=== PATIENT | male | born 1945 | race Caucasian/White ===

== ENCOUNTER 2017-08-31 11:27 | Outpatient (CLI) | payer OTHER, MEDICARE ==
[~2017-08-31 11:27] MED LIST: ONDA8TAB9 PO
[2017-08-31 12:39] LABS: BASOPHILS # (AUTO) 0.1 X10'3 (0-0.2); EOSINOPHILS # (AUTO) 0.2 X10'3 (0-0.9); EOSINOPHILS % (AUTO) 2.2 % (0-6); HEMATOCRIT 42.1 % (42.0-52.0); HEMOGLOBIN 14.7 g/dl (14.0-17.9); LYMPHOCYTES # (AUTO) 2.3 X10'3 (1.1-4.8); LYMPHOCYTES % (AUTO) 21.9 % (21-51); MEAN CORPUSCULAR HEMOGLOBIN 31.1 PG (27.0-31.0); MEAN CORPUSCULAR HGB CONC 34.8 % (33.0-36.5); MEAN CORPUSCULAR VOLUME 89.2 FL (78-98); MEAN PLATELET VOLUME 7.2 FL (7.4-10.4); MONOCYTES # (AUTO) 0.8 X10'3 (0-0.9); MONOCYTES % (AUTO) 7.3 % (2-12); NEUTROPHILS # (AUTO) 7.1 X10'3 (1.8-7.7); NEUTROPHILS % (AUTO) 67.6 % (42-75); PLATELET COUNT 249 X10'3 (140-440); RED BLOOD COUNT 4.72 X10'6 (4.70-6.10); RED CELL DISTRIBUTION WIDTH 14.6 % (11.5-14.5); WHITE BLOOD COUNT 10.6 X10'3 (4.5-11.0)
[2017-08-31 12:46] LABS: CLARITY,URINE CLEAR (Clear); COLOR,URINE STRAW (Yellow); GLUCOSE, URINE NEGATIVE (Neg); KETONES,URINE NEGATIVE (Neg); LEUKOCYTE ESTERASE ,URINE NEGATIVE (Neg); NITRITES, URINE NEGATIVE (Neg); OCCULT BLOOD,URINE TRACE-LYSED (Neg); PH,URINE 5.5 (4.8-8.0); PROTEIN,URINE NEGATIVE (Neg); UROBILINOGEN,URINE 0.2 E.U/dL (0.2-1.0)
[2017-08-31 12:57] LABS: UA COLLECTION TYPE VOIDED
[2017-08-31 12:58] LABS: BACTERIA,URINE FEW /HPF (Neg); RBC,URINE 0-2 /HPF (0-2); SQUAMOUS EPITHELIAL CELL,UR FEW /LPF (FEW); WBC,URINE 0-4 /HPF (0-4)
[2017-08-31 13:03] LABS: ALANINE AMINOTRANSFERASE 17 U/L (12-78); ALBUMIN 3.7 G/DL (3.4-5.0); ALBUMIN/GLOBULIN RATIO 1.4 (1.1-1.5); ALKALINE PHOSPHATASE 67 IU/L (46-116); ANION GAP 6 (8-16); ASPARTATE AMINO TRANSFERASE 32 U/L (10-37); BILIRUBIN,TOTAL 0.5 MG/DL (0.1-1.0); BLOOD UREA NITROGEN 9 MG/DL (7-18); CALCIUM 8.5 MG/DL (8.5-10.1); CHLORIDE 103 MMOL/L (99-107); CHOL/HDL RATIO 3.7 (0.00-4.99); CHOLESTEROL 181 MG/DL (0-200); CREATININE 1.12 MG/DL (0.60-1.10); GLUCOSE 72 MG/DL (70-104); HDL CHOLESTEROL 49 MG/DL (35-60); LDL CHOLESTEROL 119 MG/DL (50-100); POTASSIUM 3.9 MMOL/L (3.5-5.1); SODIUM 139 MMOL/L (135-145); TOTAL CARBON DIOXIDE 29.6 MMOL/L (24-32); TOTAL PROTEIN 6.4 G/DL (6.4-8.2); TRIGLYCERIDES 63 MG/DL (20-135); eGFR 65 ML/MIN
[2017-09-02 15:25] LABS: TESTOSTERONE, FREE, DIRECT 14.7 pg/mL (6.6-18.1)
== END 2017-08-31 23:59 | disposition home or self-care (01) ==
LOC: LAB 11:27
PROVIDERS: ATTEND Family Medicine
DX: M54.41 Lumbago with sciatica, right side (principal); F17.200 Nicotine dependence, unspecified, uncomplicated; Z76.89 Persons encountering health services in other specified circumstances
CPT/HCPCS: 36415; 80053; 80061; 81001; 84402; 84403; 84439; 84443; 85025

== ENCOUNTER 2017-09-04 08:57 | Outpatient (CLI) | payer OTHER, MEDICARE | END 2017-09-04 23:59 | disposition home or self-care (01) | LOC: RAD 08:57 | PROVIDERS: ATTEND Surgery | DX: M47.816 Spondylosis without myelopathy or radiculopathy, lumbar region (principal); M48.061 Spinal stenosis, lumbar region without neurogenic claudication | CPT/HCPCS: 72148 ==

== ENCOUNTER 2019-01-09 09:53 | Outpatient (CLI) | payer OTHER, MEDICARE ==
[2019-01-09 10:39] LABS: BASOPHILS # (AUTO) 0.1 X10'3 (0-0.2); BASOPHILS % (AUTO) 1.4 % (0-1); EOSINOPHILS # (AUTO) 0.1 X10'3 (0-0.9); EOSINOPHILS % (AUTO) 1.5 % (0-6); HEMATOCRIT 41.5 % (42.0-52.0); HEMOGLOBIN 14.3 g/dl (14.0-17.9); LYMPHOCYTES # (AUTO) 1.3 X10'3 (1.1-4.8); LYMPHOCYTES % (AUTO) 15.3 % (21-51); MEAN CORPUSCULAR HGB CONC 34.4 g/dL (33.0-36.5); MEAN CORPUSCULAR VOLUME 93.1 FL (78-98); MEAN PLATELET VOLUME 6.3 FL (7.4-10.4); MONOCYTES # (AUTO) 0.6 X10'3 (0-0.9); MONOCYTES % (AUTO) 6.3 % (2-12); NEUTROPHILS # (AUTO) 6.6 X10'3 (1.8-7.7); NEUTROPHILS % (AUTO) 75.5 % (42-75); PLATELET COUNT 197 X10'3 (140-440); RED BLOOD COUNT 4.45 X10'6 (4.70-6.10); RED CELL DISTRIBUTION WIDTH 13.8 % (11.5-14.5); WHITE BLOOD COUNT 8.7 X10'3 (4.5-11.0)
[2019-01-09 10:41] LABS: CLARITY,URINE CLEAR (Clear); COLOR,URINE YELLOW (Yellow); GLUCOSE, URINE NEGATIVE (Neg); KETONES,URINE NEGATIVE (Neg); LEUKOCYTE ESTERASE ,URINE NEGATIVE (Neg); NITRITES, URINE NEGATIVE (Neg); OCCULT BLOOD,URINE SMALL (Neg); PROTEIN,URINE TRACE mg/dl (Neg); UROBILINOGEN,URINE 0.2 E.U/dL (0.2-1.0)
[2019-01-09 10:58] LABS: UA COLLECTION TYPE CLN CATCH MIDSTREAM
[2019-01-09 10:59] LABS: BACTERIA,URINE 1+ /HPF (Neg); MUCUS STRANDS MODERATE /LPF (Neg); SQUAMOUS EPITHELIAL CELL,UR FEW /LPF (FEW); WBC,URINE 0-4 /HPF (0-4)
[2019-01-09 11:02] LABS: ALANINE AMINOTRANSFERASE 32 U/L (12-78); ALBUMIN 3.6 G/DL (3.4-5.0); ALBUMIN/GLOBULIN RATIO 1.1 (1.1-1.5); ALKALINE PHOSPHATASE 76 IU/L (46-116); ANION GAP 7 (8-16); ASPARTATE AMINO TRANSFERASE 58 U/L (10-37); BILIRUBIN,TOTAL 0.4 MG/DL (0.1-1.0); BLOOD UREA NITROGEN 8 MG/DL (7-18); BUN/CREATININE RATIO 7.8 (5.4-32.0); CALCIUM 8.6 MG/DL (8.5-10.1); CHLORIDE 104 MMOL/L (99-107); CHOL/HDL RATIO 3.4 (0.00-4.99); CHOLESTEROL 202 MG/DL (0-200); CREATININE 1.03 MG/DL (0.60-1.10); GLUCOSE 121 MG/DL (70-104); HDL CHOLESTEROL 59 MG/DL (35-60); LDL CHOLESTEROL 137 MG/DL (50-100); POTASSIUM 3.8 MMOL/L (3.5-5.1); SODIUM 143 MMOL/L (135-145); TOTAL CARBON DIOXIDE 32.4 MMOL/L (24-32); TRIGLYCERIDES 96 MG/DL (20-135); eGFR 71 ML/MIN
== END 2019-01-09 23:59 | disposition home or self-care (01) ==
LOC: LAB 09:53
PROVIDERS: ATTEND Family Medicine
DX: M54.41 Lumbago with sciatica, right side (principal); Z76.89 Persons encountering health services in other specified circumstances; Z95.828 Presence of other vascular implants and grafts; F17.200 Nicotine dependence, unspecified, uncomplicated
CPT/HCPCS: 36415; 80053; 80061; 81001; 84439; 84443; 85025

== ENCOUNTER 2019-04-12 15:56 | Inpatient (IN) | payer OTHER, MEDICARE ==
[~2019-04-12] VITALS: Ht 177.8 cm; Wt 61.8 kg
[2019-04-12] MEDS ORDERED: nitroGLYCERIN 0.4mg SUBLingual tab SL PRN ×2 (16:05→16:50)
[2019-04-12] MEDS ORDERED: aspirin 81mg tab.chew PO ONE (16:05)
[2019-04-12 16:11] LABS: BASOPHILS # (AUTO) 0.2 X10'3 (0-0.2); BASOPHILS % (AUTO) 1.2 % (0-1); EOSINOPHILS % (AUTO) 0.3 % (0-6); HEMATOCRIT 40.6 % (42.0-52.0); HEMOGLOBIN 13.7 g/dl (14.0-17.9); LYMPHOCYTES # (AUTO) 1.5 X10'3 (1.1-4.8); LYMPHOCYTES % (AUTO) 9.6 % (21-51); MEAN CORPUSCULAR HEMOGLOBIN 30.9 PG (27.0-31.0); MEAN CORPUSCULAR HGB CONC 33.7 g/dL (33.0-36.5); MEAN CORPUSCULAR VOLUME 91.8 FL (78-98); MEAN PLATELET VOLUME 6.4 FL (7.4-10.4); MONOCYTES # (AUTO) 2.2 X10'3 (0-0.9); MONOCYTES % (AUTO) 14.3 % (2-12); NEUTROPHILS # (AUTO) 11.5 X10'3 (1.8-7.7); NEUTROPHILS % (AUTO) 74.6 % (42-75); PLATELET COUNT 379 X10'3 (140-440); RED BLOOD COUNT 4.42 X10'6 (4.70-6.10); RED CELL DISTRIBUTION WIDTH 12.9 % (11.5-14.5); WHITE BLOOD COUNT 15.4 X10'3 (4.5-11.0)
[2019-04-12 16:26] LABS: ALANINE AMINOTRANSFERASE 18 U/L (12-78); ALBUMIN 3.4 G/DL (3.4-5.0); ALBUMIN/GLOBULIN RATIO 0.9 (1.1-1.5); ALKALINE PHOSPHATASE 88 IU/L (46-116); ANION GAP 10 (8-16); ASPARTATE AMINO TRANSFERASE 24 U/L (10-37); BILIRUBIN,TOTAL 0.6 MG/DL (0.1-1.0); BLOOD UREA NITROGEN 12 MG/DL (7-18); BUN/CREATININE RATIO 11.4 (5.4-32.0); CALCIUM 8.9 MG/DL (8.5-10.1); CHLORIDE 96 MMOL/L (99-107); CREATININE 1.05 MG/DL (0.60-1.10); GLUCOSE 106 MG/DL (70-104); POTASSIUM 3.3 MMOL/L (3.5-5.1); SODIUM 134 MMOL/L (135-145); TOTAL PROTEIN 7.3 G/DL (6.4-8.2); eGFR 70 ML/MIN
[2019-04-12 16:31] LABS: MAGNESIUM 1.7 MG/DL (1.5-2.4); PLATELET ESTIMATE NORMAL; TOTAL CELLS COUNTED 100
[2019-04-12] MEDS ORDERED: GABA-530 PO (16:31)
[2019-04-12] MEDS ORDERED: BACL20TA2 PO (16:31)
[2019-04-12] MEDS ORDERED: TIMO5DRO4 EACHEYE (16:31)
[2019-04-12] MEDS ORDERED: PANT20TA3 PO (16:31)
[2019-04-12] MEDS ORDERED: CYCL-1 PO (16:31)
[2019-04-12] MEDS ORDERED: CLOP75TA35 PO (16:31)
[2019-04-12] MEDS ORDERED: magnesium Cl slow-release 64mg tablet PO PRN (16:50)
[2019-04-12] MEDS ORDERED: magnesium 2GM in 50ml NS 50 ML IV PRN (16:50)
[2019-04-12] MEDS ORDERED: acetaminophen 325mg tablet PO PRN ×2 (16:50)
[2019-04-12] MEDS ORDERED: ondansetron/PF 4mg/2ml inj IV PRN (16:50)
[2019-04-12] MEDS ORDERED: mag hydrox/Alum hydrox/simeth 30ml oral suspension PO PRN (16:50)
[2019-04-12] MEDS ORDERED: magnesium hydroxide 30ml (MOM) UD suspension PO PRN (16:50)
[2019-04-12] MEDS ORDERED: HYDROcodone/acetaminophen 5mg/325mg tablet PO PRN (16:50)
[2019-04-12] MEDS ORDERED: potassium CL 10mEq/100ml bag 100 ML IV PRN ×2 (16:50)
[2019-04-12] MEDS ORDERED: potassium Cl 20 mEq SR tablet PO PRN ×2 (16:50)
[2019-04-12] MEDS ORDERED: morphine 2 MG/ML inj. syringe IV PRN ×2 (16:50)
[2019-04-12] MEDS ORDERED: magnesium 4gm in 100ml NS 100 ML IV PRN (16:50)
[2019-04-12] MEDS ORDERED: furosemide 20 MG/2 ML vial IV ONE (17:00)
[2019-04-12 17:08] LABS: D-DIMER 4.25 MG/L FEU (0-0.50)
[2019-04-12] MEDS ORDERED: iohexol 350MG/ML 100ml bottle IV ONE (17:36)
[2019-04-12 18:00] VITALS: BP 118/69
[2019-04-12] MEDS: K and/or MAG REPLACEMENT MC SCH (20:00)
[2019-04-12] MEDS ORDERED: nitroGLYCERIN 0.2mg/hour patch TD ONE (21:25)
[2019-04-12] MEDS ORDERED: LORazepam 1 MG tablet PO PRN (21:25)
[2019-04-12] MEDS ORDERED: LORazepam 2 mg/ml vial IV PRN (21:25)
[2019-04-12] MEDS ORDERED: furosemide 40mg/4ml inj IV ONE (21:25)
[2019-04-12 22:00] VITALS: BP 115/64
[2019-04-12] MEDS ORDERED: thiamine 100mg tablet PO ONE (22:15)
[2019-04-12] MEDS ORDERED: folic acid 1mg tablet PO ONE (22:15)
[2019-04-12] MEDS: folic acid 1mg tablet PO SCH (22:30)
[2019-04-12] MEDS: thiamine 100mg tablet PO SCH (22:31)
[2019-04-13] VITALS (16 sets, daily range): BP systolic 109–137; BP diastolic 58–74
[2019-04-13 04:52] LABS: BASOPHILS # (AUTO) 0.1 X10'3 (0-0.2); BASOPHILS % (AUTO) 0.6 % (0-1); EOSINOPHILS # (AUTO) 0.1 X10'3 (0-0.9); EOSINOPHILS % (AUTO) 0.5 % (0-6); HEMATOCRIT 38.4 % (42.0-52.0); LYMPHOCYTES # (AUTO) 1.3 X10'3 (1.1-4.8); LYMPHOCYTES % (AUTO) 10.2 % (21-51); MEAN CORPUSCULAR HEMOGLOBIN 31.1 PG (27.0-31.0); MEAN CORPUSCULAR HGB CONC 33.9 g/dL (33.0-36.5); MEAN CORPUSCULAR VOLUME 91.7 FL (78-98); MEAN PLATELET VOLUME 6.8 FL (7.4-10.4); MONOCYTES # (AUTO) 1.9 X10'3 (0-0.9); NEUTROPHILS # (AUTO) 9.2 X10'3 (1.8-7.7); NEUTROPHILS % (AUTO) 73.7 % (42-75); PLATELET COUNT 372 X10'3 (140-440); RED BLOOD COUNT 4.19 X10'6 (4.70-6.10); WHITE BLOOD COUNT 12.5 X10'3 (4.5-11.0)
[2019-04-13 05:04] LABS: ALBUMIN 2.9 G/DL (3.4-5.0); ANION GAP 8 (8-16); BLOOD UREA NITROGEN 14 MG/DL (7-18); BUN/CREATININE RATIO 13.9 (5.4-32.0); CALCIUM 8.8 MG/DL (8.5-10.1); CHLORIDE 99 MMOL/L (99-107); CREATININE 1.01 MG/DL (0.60-1.10); GLUCOSE 94 MG/DL (70-104); MAGNESIUM 1.7 MG/DL (1.5-2.4); POTASSIUM 3.9 MMOL/L (3.5-5.1); SODIUM 136 MMOL/L (135-145); TOTAL CARBON DIOXIDE 28.7 MMOL/L (24-32); eGFR 73 ML/MIN
--- NOTE | 2019-04-13 06:26 | NUR ---
Problems reprioritized. Patient report given to Michael, questions answered & plan of care reviewed with .
[2019-04-13 06:49] LABS: CLARITY,URINE CLEAR (Clear); COLOR,URINE YELLOW (Yellow); GLUCOSE, URINE NEGATIVE (Neg); KETONES,URINE NEGATIVE (Neg); LEUKOCYTE ESTERASE ,URINE NEGATIVE (Neg); NITRITES, URINE NEGATIVE (Neg); OCCULT BLOOD,URINE MODERATE (Neg); PROTEIN,URINE NEGATIVE (Neg); UROBILINOGEN,URINE 0.2 E.U/dL (0.2-1.0)
[2019-04-13 06:53] LABS: UA COLLECTION TYPE NON-SPECIFIED
[2019-04-13 06:55] LABS: BACTERIA,URINE NONE SEEN /HPF (Neg); MUCUS STRANDS NONE SEEN /LPF (Neg); SQUAMOUS EPITHELIAL CELL,UR NONE SEEN /LPF (FEW); WBC,URINE 0-4 /HPF (0-4)
[2019-04-13] MEDS ORDERED: enoxaparin 40mg/0.4ml syringe SQ SCH (08:00)
[2019-04-13] MEDS: K and/or MAG REPLACEMENT MC SCH ×2 (08:00→20:00)
[2019-04-13] MEDS ORDERED: aminophylline 250mg/10ml inj. IV PRN (09:20)
[2019-04-13] MEDS ORDERED: nitroGLYCERIN 0.4mg SUBLingual tab SL PRN (09:20)
[2019-04-13] MEDS ORDERED: regadenoson 0.4mg/5ml syringe IV PRN (09:20)
[2019-04-13] MEDS ORDERED: metoprolol tartrate 1mg/ml inj IV PRN (09:20)
[2019-04-13] MEDS: furosemide 20 MG/2 ML vial IV SCH ×2 (09:42→20:49)
[2019-04-13] MEDS: thiamine 100mg tablet PO SCH (09:45)
[2019-04-13] MEDS: folic acid 1mg tablet PO SCH (09:45)
[2019-04-13] MEDS: indomethacin 25mg capsule PO SCH ×3 (11:15→17:38)
--- NOTE | 2019-04-13 18:04 | NUR ---
Problems reprioritized. Patient report given, questions answered & plan of care reviewed with Edita RIBEIRO.
--- NOTE | 2019-04-13 18:30 | NUR ---
Patient in room MED 312. I have received report from QUINTIN Coronado and had the opportunity to ask questions and assume patient care.
[2019-04-13] MEDS: metoprolol tartrate 12.5mg (1/2 tablet) PO SCH (20:48)
[2019-04-13] MEDS ORDERED: cyclobenzaprine 10mg tablet PO SCH (21:00)
[2019-04-13] MEDS ORDERED: baclofen 10mg tablet PO SCH (21:00)
[2019-04-13] MEDS ORDERED: timolol 0.5% ophthalmic solution 5ml bottle EACHEYE SCH (21:00)
[2019-04-13] MEDS ORDERED: pantoprazole 40mg Tablet.DR PO SCH (21:00)
[2019-04-13] MEDS ORDERED: gabapentin 100mg capsule PO SCH (21:00)
[2019-04-13] MEDS ORDERED: clopidogrel 75mg tablet PO SCH (21:00)
[2019-04-14 03:00] VITALS: BP 113/73
[2019-04-14 06:00] VITALS: BP 127/67
--- NOTE | 2019-04-14 06:11 | NUR ---
Problems reprioritized. Patient report given, questions answered & plan of care reviewed with QUINTIN Matthews.
[2019-04-14 06:41] LABS: BASOPHILS # (AUTO) 0.1 X10'3 (0-0.2); BASOPHILS % (AUTO) 0.6 % (0-1); EOSINOPHILS # (AUTO) 0.3 X10'3 (0-0.9); EOSINOPHILS % (AUTO) 2.4 % (0-6); HEMATOCRIT 38.8 % (42.0-52.0); HEMOGLOBIN 13.1 g/dl (14.0-17.9); LYMPHOCYTES # (AUTO) 1.1 X10'3 (1.1-4.8); LYMPHOCYTES % (AUTO) 8.2 % (21-51); MEAN CORPUSCULAR HEMOGLOBIN 30.9 PG (27.0-31.0); MEAN CORPUSCULAR HGB CONC 33.6 g/dL (33.0-36.5); MEAN CORPUSCULAR VOLUME 91.8 FL (78-98); MEAN PLATELET VOLUME 6.8 FL (7.4-10.4); MONOCYTES # (AUTO) 1.7 X10'3 (0-0.9); MONOCYTES % (AUTO) 13.1 % (2-12); NEUTROPHILS # (AUTO) 9.7 X10'3 (1.8-7.7); NEUTROPHILS % (AUTO) 75.7 % (42-75); PLATELET COUNT 414 X10'3 (140-440); RED BLOOD COUNT 4.23 X10'6 (4.70-6.10); RED CELL DISTRIBUTION WIDTH 12.9 % (11.5-14.5); WHITE BLOOD COUNT 12.8 X10'3 (4.5-11.0)
[2019-04-14 06:47] LABS: ALBUMIN 2.7 G/DL (3.4-5.0); ANION GAP 10 (8-16); BLOOD UREA NITROGEN 26 MG/DL (7-18); BUN/CREATININE RATIO 21.1 (5.4-32.0); CALCIUM 8.8 MG/DL (8.5-10.1); CHLORIDE 100 MMOL/L (99-107); CHOL/HDL RATIO 4.2 (0.00-4.99); CHOLESTEROL 135 MG/DL (0-200); CREATININE 1.23 MG/DL (0.60-1.10); GLUCOSE 90 MG/DL (70-104); HDL CHOLESTEROL 32 MG/DL (35-60); LDL CHOLESTEROL 90 MG/DL (50-100); MAGNESIUM 1.7 MG/DL (1.5-2.4); POTASSIUM 3.9 MMOL/L (3.5-5.1); SODIUM 140 MMOL/L (135-145); TOTAL CARBON DIOXIDE 30.4 MMOL/L (24-32); TRIGLYCERIDES 80 MG/DL (20-135); eGFR 58 ML/MIN
[2019-04-14] MEDS: indomethacin 25mg capsule PO SCH (07:28)
[2019-04-14] MEDS: folic acid 1mg tablet PO SCH (07:28)
[2019-04-14] MEDS: metoprolol tartrate 12.5mg (1/2 tablet) PO SCH (07:28)
[2019-04-14] MEDS: thiamine 100mg tablet PO SCH (07:28)
[2019-04-14] MEDS: furosemide 20 MG/2 ML vial IV SCH (07:37)
[2019-04-14] MEDS: K and/or MAG REPLACEMENT MC SCH (08:00)
[2019-04-14] MEDS ORDERED: aspirin 81mg tablet.DR PO SCH (08:00)
[2019-04-14] MEDS ORDERED: colchicine 0.6mg tablet PO SCH (08:00)
[2019-04-14 10:00] VITALS: BP 101/59
[2019-04-14] MEDS ORDERED: COLC0.6T69 PO (12:01)
[2019-04-14] MEDS ORDERED: INDO-12 PO (12:01)
--- NOTE | 2019-04-14 13:53 | NUR ---
Pt. given discharge instructions, all questions answered. PIV removed without complication. Meds called in.
== END 2019-04-14 12:36 | disposition home or self-care (01) | DRG 316 ==
LOC: ER 15:57 → ED HOLD 17:13 → MED 3N 18:45
PROVIDERS: ADMIT Hospitalist; ATTEND Hospitalist
PROC: B32T1ZZ Computerized Tomography (CT Scan) of Left Pulmonary Artery using Low Osmolar Contrast (ICD-10-PCS; principal; 2019-04-12)
PROC: B3201ZZ Computerized Tomography (CT Scan) of Thoracic Aorta using Low Osmolar Contrast (ICD-10-PCS; 2019-04-12)
PROC: B32S1ZZ Computerized Tomography (CT Scan) of Right Pulmonary Artery using Low Osmolar Contrast (ICD-10-PCS; 2019-04-12)
PROC: 4A02XM4 Measurement of Cardiac Total Activity, External Approach (ICD-10-PCS; 2019-04-13)
PROC: 3E033HZ Introduction of Radioactive Substance into Peripheral Vein, Percutaneous Approach (ICD-10-PCS; 2019-04-13)
DX: I30.9 Acute pericarditis, unspecified (principal); E78.5 Hyperlipidemia, unspecified; F17.200 Nicotine dependence, unspecified, uncomplicated; J44.9 Chronic obstructive pulmonary disease, unspecified; I10 Essential (primary) hypertension; I25.10 Atherosclerotic heart disease of native coronary artery without angina pectoris; I34.0 Nonrheumatic mitral (valve) insufficiency; K21.9 Gastro-esophageal reflux disease without esophagitis; R70.0 Elevated erythrocyte sedimentation rate; R79.82 Elevated C-reactive protein (CRP); I48.0 Paroxysmal atrial fibrillation; N52.9 Male erectile dysfunction, unspecified; Z79.02 Long term (current) use of antithrombotics/antiplatelets; Z95.5 Presence of coronary angioplasty implant and graft; Z79.899 Other long term (current) drug therapy; Z71.6 Tobacco abuse counseling
CPT/HCPCS: 36415; 71045; 71275; 78452; 80048; 80053; 80061; 81001; 82948; 83605; 83735; 83880; 84484; 85025; 85379; 85651; 86140; 87040; 93005; 93017; 93306; 99285; A9500; G0378; J0280; J1940; J2785; Q9967

== ENCOUNTER 2019-04-17 20:13 | Inpatient (IN) | payer OTHER, MEDICARE ==
[~2019-04-17] VITALS: Ht 177.8 cm; Wt 60.3 kg
[~2019-04-17 20:13] MED LIST changes: +BACL20TA2 PO; +CLOP75TA35 PO; +COLC0.6T69 PO; +CYCL-1 PO; +GABA-530 PO; +INDO-12 PO; -ONDA8TAB9 PO; +PANT20TA3 PO; +TIMO5DRO4 EACHEYE
[2019-04-17] MEDS ORDERED: aspirin 81mg tab.chew PO ONE ×2 (20:30)
[2019-04-17] MEDS ORDERED: LIDOcaine 1% 30ml preserv. free vial ONE (20:46)
[2019-04-17] MEDS ORDERED: heparin 1,000unit/ml 10ml vial 10 ML ONE (20:46)
[2019-04-17] MEDS ORDERED: midazolam 2 mg/2 ml injection ONE (20:46)
[2019-04-17] MEDS ORDERED: fentaNYL/PF 50MCG/1 ML 2ML syringe ONE (20:46)
[2019-04-17] MEDS ORDERED: iohexol 350 MG/1 ML 200ml bottle ONE (20:47)
[2019-04-17] MEDS ORDERED: iohexol 350 MG/ML 50ML vial IV ONE (20:47)
[2019-04-17 21:05] LABS: BASOPHILS # (AUTO) 0.1 X10'3 (0-0.2); BASOPHILS % (AUTO) 0.8 % (0-1); EOSINOPHILS # (AUTO) 0.2 X10'3 (0-0.9); EOSINOPHILS % (AUTO) 1.1 % (0-6); HEMATOCRIT 36.1 % (42.0-52.0); HEMOGLOBIN 12.4 g/dl (14.0-17.9); LYMPHOCYTES # (AUTO) 1.5 X10'3 (1.1-4.8); LYMPHOCYTES % (AUTO) 9.6 % (21-51); MEAN CORPUSCULAR HEMOGLOBIN 31.4 PG (27.0-31.0); MEAN CORPUSCULAR HGB CONC 34.4 g/dL (33.0-36.5); MEAN CORPUSCULAR VOLUME 91.3 FL (78-98); MEAN PLATELET VOLUME 6.8 FL (7.4-10.4); MONOCYTES # (AUTO) 1.4 X10'3 (0-0.9); MONOCYTES % (AUTO) 8.8 % (2-12); NEUTROPHILS # (AUTO) 12.2 X10'3 (1.8-7.7); NEUTROPHILS % (AUTO) 79.7 % (42-75); PLATELET COUNT 597 X10'3 (140-440); RED BLOOD COUNT 3.95 X10'6 (4.70-6.10); RED CELL DISTRIBUTION WIDTH 12.7 % (11.5-14.5); WHITE BLOOD COUNT 15.4 X10'3 (4.5-11.0)
[2019-04-17] MEDS ORDERED: heparin 25,000 UNIT/250ml bag 250 ML IV SCH (21:05)
[2019-04-17] MEDS ORDERED: heparin 10,000 units/1 ML INJ IV ONE (21:05)
[2019-04-17] MEDS ORDERED: nitroGLYCERIN 0.4mg SUBLingual tab SL PRN (21:05)
[2019-04-17] MEDS ORDERED: heparin 10,000 units/1 ML INJ IV PRN (21:05)
[2019-04-17 21:11] LABS: PARTIAL THROMBOPLASTIN TIME 31 SECONDS (22-32)
[2019-04-17 21:17] LABS: ALANINE AMINOTRANSFERASE 20 U/L (12-78); ALBUMIN 3.1 G/DL (3.4-5.0); ALBUMIN/GLOBULIN RATIO 0.7 (1.1-1.5); ALKALINE PHOSPHATASE 117 IU/L (46-116); ANION GAP 9 (8-16); ASPARTATE AMINO TRANSFERASE 30 U/L (10-37); BILIRUBIN,TOTAL 0.3 MG/DL (0.1-1.0); BLOOD UREA NITROGEN 20 MG/DL (7-18); BUN/CREATININE RATIO 16.3 (5.4-32.0); CHLORIDE 96 MMOL/L (99-107); CREATININE 1.23 MG/DL (0.60-1.10); GLUCOSE 101 MG/DL (70-104); POTASSIUM 3.1 MMOL/L (3.5-5.1); SODIUM 133 MMOL/L (135-145); TOTAL CARBON DIOXIDE 28.1 MMOL/L (24-32); TOTAL PROTEIN 7.5 G/DL (6.4-8.2); eGFR 58 ML/MIN
[2019-04-17 21:24] LABS: MAGNESIUM 1.7 MG/DL (1.5-2.4)
[2019-04-17 22:10] LABS: TOTAL CELLS COUNTED 100
[2019-04-17 22:11] LABS: PLATELET ESTIMATE INCREASED
[2019-04-17 23:00] VITALS: BP 139/69
[2019-04-17] MEDS ORDERED: morphine 2 MG/ML inj. syringe IV PRN ×2 (23:10)
[2019-04-17] MEDS ORDERED: potassium Cl 20 mEq SR tablet PO PRN ×2 (23:10)
[2019-04-17] MEDS ORDERED: ondansetron/PF 4mg/2ml inj IV PRN ×2 (23:10→23:40)
[2019-04-17] MEDS ORDERED: normal saline 1000ml 1,000 ML IV SCH (23:10)
[2019-04-17] MEDS ORDERED: mag hydrox/Alum hydrox/simeth 30ml oral suspension PO PRN (23:10)
[2019-04-17] MEDS ORDERED: potassium CL 10mEq/100ml bag 100 ML IV PRN ×2 (23:10)
[2019-04-17] MEDS ORDERED: magnesium hydroxide 30ml (MOM) UD suspension PO PRN (23:10)
[2019-04-17] MEDS ORDERED: acetaminophen 325mg tablet PO PRN (23:10)
[2019-04-17] MEDS ORDERED: methylPREDNISolone sod succ 125mg/2ml vial IV ONE (23:15)
[2019-04-17] MEDS ORDERED: proCHLORperazine 10 MG/2 ml inj IV PRN (23:40)
[2019-04-17] MEDS ORDERED: OXAZEpam 15mg capsule PO PRN (23:40)
[2019-04-17] MEDS ORDERED: HYDROcodone/acetaminophen 5mg/325mg tablet PO PRN (23:40)
[2019-04-17] MEDS ORDERED: HYDROcodone/acetaminophen 10/325mg tab PO PRN (23:40)
[2019-04-18] MEDS: normal saline 1000ml 1,000 ML IV SCH ×2 (00:17→07:52)
[2019-04-18 02:00] VITALS: BP 143/65
[2019-04-18 05:39] LABS: BASOPHILS # (AUTO) 0.1 X10'3 (0-0.2); BASOPHILS % (AUTO) 0.7 % (0-1); EOSINOPHILS % (AUTO) 0.3 % (0-6); HEMATOCRIT 34.3 % (42.0-52.0); HEMOGLOBIN 11.8 g/dl (14.0-17.9); LYMPHOCYTES # (AUTO) 0.4 X10'3 (1.1-4.8); LYMPHOCYTES % (AUTO) 3.5 % (21-51); MEAN CORPUSCULAR HEMOGLOBIN 31.6 PG (27.0-31.0); MEAN CORPUSCULAR HGB CONC 34.4 g/dL (33.0-36.5); MEAN CORPUSCULAR VOLUME 91.9 FL (78-98); MEAN PLATELET VOLUME 6.8 FL (7.4-10.4); MONOCYTES # (AUTO) 0.4 X10'3 (0-0.9); MONOCYTES % (AUTO) 2.9 % (2-12); NEUTROPHILS % (AUTO) 92.6 % (42-75); PLATELET COUNT 544 X10'3 (140-440); RED BLOOD COUNT 3.73 X10'6 (4.70-6.10); RED CELL DISTRIBUTION WIDTH 12.9 % (11.5-14.5)
[2019-04-18 06:00] VITALS: BP 118/72
[2019-04-18 06:11] LABS: ALANINE AMINOTRANSFERASE 16 U/L (12-78); ALBUMIN 2.5 G/DL (3.4-5.0); ALBUMIN/GLOBULIN RATIO 0.6 (1.1-1.5); ALKALINE PHOSPHATASE 101 IU/L (46-116); ANION GAP 8 (8-16); ASPARTATE AMINO TRANSFERASE 26 U/L (10-37); BILIRUBIN,TOTAL 0.4 MG/DL (0.1-1.0); BLOOD UREA NITROGEN 15 MG/DL (7-18); BUN/CREATININE RATIO 16.5 (5.4-32.0); CALCIUM 8.6 MG/DL (8.5-10.1); CHLORIDE 105 MMOL/L (99-107); CREATININE 0.91 MG/DL (0.60-1.10); GLUCOSE 105 MG/DL (70-104); SODIUM 139 MMOL/L (135-145); TOTAL CARBON DIOXIDE 26.5 MMOL/L (24-32); TOTAL PROTEIN 6.4 G/DL (6.4-8.2); eGFR 82 ML/MIN
--- NOTE | 2019-04-18 06:25 | NUR ---
Patient in room MED 312. I have received report from Shea RIBEIRO and had the opportunity to ask questions and assume patient care.
--- NOTE | 2019-04-18 06:27 | NUR ---
Problems reprioritized. Patient report given to Michael, questions answered & plan of care reviewed with .
[2019-04-18] MEDS ORDERED: K and/or MAG REPLACEMENT MC SCH (08:00)
[2019-04-18] MEDS ORDERED: colchicine 0.6mg tablet PO SCH (08:00)
[2019-04-18 10:50] VITALS: BP 123/83
--- NOTE | 2019-04-18 10:55 | NUR ---
Discussed discharge instructions with patient, answered questions, made aware of follow ups needing made with bellhop service captain and pcp. Eager to go home, IV's removed and tele dc'd, Belongings bagged and ready to go with patient, Escorted out with this nurse, ambulated well without event.
[2019-04-18] MEDS ORDERED: clopidogrel 75mg tablet PO SCH (21:00)
[2019-04-18] MEDS ORDERED: timolol 0.5% ophthalmic solution 5ml bottle EACHEYE SCH (21:00)
[2019-04-18] MEDS ORDERED: baclofen 10mg tablet PO SCH (21:00)
[2019-04-18] MEDS ORDERED: gabapentin 100mg capsule PO SCH (21:00)
[2019-04-18] MEDS ORDERED: cyclobenzaprine 10mg tablet PO SCH ×2 (21:00)
[2019-04-18] MEDS ORDERED: pantoprazole 40mg Tablet.DR PO SCH (21:00)
== END 2019-04-18 10:55 | disposition home or self-care (01) | DRG 286 ==
LOC: ER 20:13 → MED 3N 23:35
PROVIDERS: ADMIT Internal Medicine; ATTEND Family Medicine
PROC: 4A023N7 Measurement of Cardiac Sampling and Pressure, Left Heart, Percutaneous Approach (ICD-10-PCS; principal; 2019-04-17)
PROC: B2111ZZ Fluoroscopy of Multiple Coronary Arteries using Low Osmolar Contrast (ICD-10-PCS; 2019-04-17)
PROC: B2151ZZ Fluoroscopy of Left Heart using Low Osmolar Contrast (ICD-10-PCS; 2019-04-17)
PROC: B41F1ZZ Fluoroscopy of Right Lower Extremity Arteries using Low Osmolar Contrast (ICD-10-PCS; 2019-04-17)
DX: I30.9 Acute pericarditis, unspecified (principal); I33.9 Acute and subacute endocarditis, unspecified; E78.5 Hyperlipidemia, unspecified; F17.210 Nicotine dependence, cigarettes, uncomplicated; I25.10 Atherosclerotic heart disease of native coronary artery without angina pectoris; I34.0 Nonrheumatic mitral (valve) insufficiency; I34.1 Nonrheumatic mitral (valve) prolapse; K21.9 Gastro-esophageal reflux disease without esophagitis; N52.9 Male erectile dysfunction, unspecified; Z95.5 Presence of coronary angioplasty implant and graft; Z72.89 Other problems related to lifestyle
CPT/HCPCS: 36415; 71045; 80053; 83605; 83735; 83880; 84145; 84484; 85025; 85347; 85610; 85651; 85730; 87040; 93005; 93458; 96374; 99152; 99153; 99291; A4620; C1760; C1769; G0378; J1644; J2001; J2250; J2930; J3010; J7030; Q9967

== ENCOUNTER 2019-05-03 12:27 | Outpatient (CLI) | payer OTHER, MEDICARE | END 2019-05-03 23:59 | disposition home or self-care (01) | LOC: LAB 12:27 | PROVIDERS: ATTEND Family Medicine | DX: I38 Endocarditis, valve unspecified (principal) | CPT/HCPCS: 36415; 85651; 86140 ==

== ENCOUNTER 2019-05-03 12:34 | Outpatient (CLI) | payer OTHER, MEDICARE | END 2019-05-03 23:59 | disposition home or self-care (01) | LOC: VAS 12:34 | PROVIDERS: ATTEND Physician Assistant | DX: I25.10 Atherosclerotic heart disease of native coronary artery without angina pectoris (principal); I70.213 Atherosclerosis of native arteries of extremities with intermittent claudication, bilateral legs | CPT/HCPCS: 93880; 93922; 93925 ==

== ENCOUNTER 2019-05-06 08:40 | Outpatient (CLI) | payer OTHER, MEDICARE ==
[2019-05-06 09:35] LABS: ALANINE AMINOTRANSFERASE 32 U/L (12-78); ALBUMIN 3.4 G/DL (3.4-5.0); ALKALINE PHOSPHATASE 114 IU/L (46-116); ANION GAP 6 (8-16); ASPARTATE AMINO TRANSFERASE 57 U/L (10-37); BILIRUBIN,TOTAL 0.6 MG/DL (0.1-1.0); BLOOD UREA NITROGEN 11 MG/DL (7-18); BUN/CREATININE RATIO 13.4 (5.4-32.0); CALCIUM 8.9 MG/DL (8.5-10.1); CHLORIDE 106 MMOL/L (99-107); CHOLESTEROL 191 MG/DL (0-200); CREATININE 0.82 MG/DL (0.60-1.10); GLUCOSE 94 MG/DL (70-104); HDL CHOLESTEROL 48 MG/DL (35-60); LDL CHOLESTEROL 131 MG/DL (50-100); SODIUM 142 MMOL/L (135-145); TOTAL CARBON DIOXIDE 29.6 MMOL/L (24-32); TOTAL PROTEIN 6.7 G/DL (6.4-8.2); TRIGLYCERIDES 67 MG/DL (20-135); eGFR > 90 ML/MIN
== END 2019-05-06 23:59 | disposition home or self-care (01) ==
LOC: VAS 08:40
PROVIDERS: ATTEND Physician Assistant
DX: I70.0 Atherosclerosis of aorta (principal); I70.8 Atherosclerosis of other arteries
CPT/HCPCS: 36415; 80053; 80061; 93978

== ENCOUNTER 2019-05-23 09:38 | Outpatient (CLI) | payer OTHER, MEDICARE ==
[2019-05-23 10:08] LABS: BASOPHILS # (AUTO) 0.1 X10'3 (0-0.2); EOSINOPHILS # (AUTO) 0.2 X10'3 (0-0.9); EOSINOPHILS % (AUTO) 1.9 % (0-6); HEMATOCRIT 36.1 % (42.0-52.0); HEMOGLOBIN 12.4 g/dl (14.0-17.9); LYMPHOCYTES # (AUTO) 1.7 X10'3 (1.1-4.8); LYMPHOCYTES % (AUTO) 13.7 % (21-51); MEAN CORPUSCULAR HEMOGLOBIN 30.6 PG (27.0-31.0); MEAN CORPUSCULAR HGB CONC 34.3 g/dL (33.0-36.5); MEAN CORPUSCULAR VOLUME 89.2 FL (78-98); MEAN PLATELET VOLUME 6.3 FL (7.4-10.4); MONOCYTES # (AUTO) 1.1 X10'3 (0-0.9); MONOCYTES % (AUTO) 9.2 % (2-12); NEUTROPHILS # (AUTO) 9.3 X10'3 (1.8-7.7); NEUTROPHILS % (AUTO) 74.2 % (42-75); PLATELET COUNT 424 X10'3 (140-440); RED BLOOD COUNT 4.05 X10'6 (4.70-6.10); RED CELL DISTRIBUTION WIDTH 13.7 % (11.5-14.5); WHITE BLOOD COUNT 12.5 X10'3 (4.5-11.0)
[2019-05-23 10:52] LABS: ALANINE AMINOTRANSFERASE 15 U/L (12-78); ALBUMIN 3.1 G/DL (3.4-5.0); ALBUMIN/GLOBULIN RATIO 0.8 (1.1-1.5); ALKALINE PHOSPHATASE 108 IU/L (46-116); ANION GAP 2 (8-16); ASPARTATE AMINO TRANSFERASE 21 U/L (10-37); BILIRUBIN,TOTAL 0.5 MG/DL (0.1-1.0); BLOOD UREA NITROGEN 8 MG/DL (7-18); BUN/CREATININE RATIO 8.4 (5.4-32.0); CALCIUM 8.8 MG/DL (8.5-10.1); CHLORIDE 102 MMOL/L (99-107); CREATININE 0.95 MG/DL (0.60-1.10); GLUCOSE 93 MG/DL (70-104); POTASSIUM 3.5 MMOL/L (3.5-5.1); SODIUM 136 MMOL/L (135-145); TOTAL CARBON DIOXIDE 31.9 MMOL/L (24-32); TOTAL PROTEIN 6.8 G/DL (6.4-8.2); eGFR 78 ML/MIN
== END 2019-05-23 23:59 | disposition home or self-care (01) ==
LOC: LAB 09:38
PROVIDERS: ATTEND Family Medicine
DX: I30.9 Acute pericarditis, unspecified (principal); I38 Endocarditis, valve unspecified
CPT/HCPCS: 36415; 80053; 85025; 85651; 86140

== ENCOUNTER 2019-06-12 08:38 | Outpatient (CLI) | payer OTHER, MEDICARE ==
[2019-06-12] MEDS ORDERED: iohexol 350MG/ML 100ml bottle IV ONE (08:51)
== END 2019-06-12 23:59 | disposition home or self-care (01) ==
LOC: 64 CT 08:38
PROVIDERS: ATTEND Physician Assistant
DX: I65.23 Occlusion and stenosis of bilateral carotid arteries (principal)
CPT/HCPCS: 70492; Q9967

== ENCOUNTER 2019-07-09 10:33 | Outpatient (CLI) | payer OTHER, MEDICARE ==
[2019-07-09 11:51] LABS: ALANINE AMINOTRANSFERASE 23 U/L (12-78); ALBUMIN 3.9 G/DL (3.4-5.0); ALBUMIN/GLOBULIN RATIO 1.3 (1.1-1.5); ALKALINE PHOSPHATASE 92 IU/L (46-116); ANION GAP 7 (8-16); ASPARTATE AMINO TRANSFERASE 40 U/L (10-37); BILIRUBIN,TOTAL 0.7 MG/DL (0.1-1.0); BLOOD UREA NITROGEN 11 MG/DL (7-18); BUN/CREATININE RATIO 11.3 (5.4-32.0); CALCIUM 8.6 MG/DL (8.5-10.1); CHLORIDE 104 MMOL/L (99-107); CHOL/HDL RATIO 2.6 (0.00-4.99); CHOLESTEROL 155 MG/DL (0-200); CREATININE 0.97 MG/DL (0.60-1.10); GLUCOSE 85 MG/DL (70-104); HDL CHOLESTEROL 59 MG/DL (35-60); LDL CHOLESTEROL 85 MG/DL (50-100); SODIUM 141 MMOL/L (135-145); TOTAL CARBON DIOXIDE 30.1 MMOL/L (24-32); TOTAL PROTEIN 6.9 G/DL (6.4-8.2); TRIGLYCERIDES 51 MG/DL (20-135); eGFR 76 ML/MIN
== END 2019-07-09 23:59 | disposition home or self-care (01) ==
LOC: CARD DIAG 10:33
PROVIDERS: ATTEND Physician Assistant
DX: I34.0 Nonrheumatic mitral (valve) insufficiency (principal); E78.49 Other hyperlipidemia; I25.10 Atherosclerotic heart disease of native coronary artery without angina pectoris
CPT/HCPCS: 36415; 80053; 80061; 85651; 93306

== ENCOUNTER 2019-08-14 05:29 | Inpatient (IN) | payer OTHER, MEDICARE ==
[2019-08-06 13:59] LABS: CLARITY,URINE CLEAR (Clear); COLOR,URINE YELLOW (Yellow); GLUCOSE, URINE NEGATIVE (Neg); KETONES,URINE NEGATIVE (Neg); LEUKOCYTE ESTERASE ,URINE NEGATIVE (Neg); NITRITES, URINE NEGATIVE (Neg); OCCULT BLOOD,URINE SMALL (Neg); PH,URINE 6.5 (4.8-8.0); PROTEIN,URINE NEGATIVE (Neg); UROBILINOGEN,URINE 0.2 E.U/dL (0.2-1.0)
[2019-08-06 14:04] LABS: BASOPHILS # (AUTO) 0.1 X10'3 (0-0.2); BASOPHILS % (AUTO) 0.8 % (0-1); EOSINOPHILS # (AUTO) 0.2 X10'3 (0-0.9); EOSINOPHILS % (AUTO) 1.3 % (0-6); LYMPHOCYTES # (AUTO) 1.7 X10'3 (1.1-4.8); LYMPHOCYTES % (AUTO) 14.4 % (21-51); MEAN CORPUSCULAR HGB CONC 32.8 g/dL (33.0-36.5); MEAN CORPUSCULAR VOLUME 91.5 FL (78-98); MEAN PLATELET VOLUME 7.2 FL (7.4-10.4); MONOCYTES % (AUTO) 8.4 % (2-12); NEUTROPHILS # (AUTO) 9.1 X10'3 (1.8-7.7); NEUTROPHILS % (AUTO) 75.1 % (42-75); PRE OP HEMATOCRIT 41.1 % (42.0-52.0); PRE OP HEMOGLOBIN 13.5 g/dL (14.0-17.9); PRE OP PLATELET COUNT 228 X10'3 (140-440); RED CELL DISTRIBUTION WIDTH 14.5 % (11.5-14.5)
[2019-08-06 14:08] LABS: UA COLLECTION TYPE CLN CATCH MIDSTREAM
[2019-08-06 14:09] LABS: BACTERIA,URINE NONE SEEN /HPF (Neg); MUCUS STRANDS NONE SEEN /LPF (Neg); SQUAMOUS EPITHELIAL CELL,UR FEW /LPF (FEW); WBC,URINE 0-4 /HPF (0-4)
[2019-08-06 14:12] LABS: ALBUMIN 3.9 G/DL (3.4-5.0); ALBUMIN/GLOBULIN RATIO 1.3 (1.1-1.5); ALKALINE PHOSPHATASE 95 IU/L (46-116); BLOOD UREA NITROGEN 13 MG/DL (7-18); BUN/CREATININE RATIO 13.3 (5.4-32.0); CALCIUM 9.5 MG/DL (8.5-10.1); CHLORIDE 102 MMOL/L (99-107); CREATININE 0.98 MG/DL (0.60-1.10); PRE OP ALT 22 U/L (30-65); PRE OP ANION GAP 6 (8-16); PRE OP AST 37 U/L (10-37); PRE OP BILIRUB, TOTAL 0.5 MG/DL (0.0-1.0); PRE OP GLUCOSE 80 MG/DL (70-104); PRE OP POTASSIUM 3.4 MMOL/L (3.4-5.1); PRE OP SODIUM 141 MMOL/L (135-145); TOTAL CARBON DIOXIDE 32.9 MMOL/L (24-32); eGFR 75 ML/MIN
[2019-08-06 14:16] LABS: HEMOGLOBIN A1C 4.9 % (4.5-6.2)
[2019-08-06 14:17] LABS: PRE OP PROTIME 9.9 SECONDS (9.0-12.0)
[2019-08-07 06:16] LABS: ABG BASE EXCESS 3.5 mmol/L (-2.0-3.0); ABG HCO3 27.1 mmol/L (22.0-26.0); ABG OXYGEN SATURATION 96.5 % (95-98); ABG PCO2 (T) 37.5 mmHg (35.0-45.0); ABG PH (T) 7.476 (7.350-7.450); ABG PO2 (T) 88.1 mmHg (83-108); ALLEN'S TEST Yes; FCOHb 7.7 % (0.5-1.5); FMetHb 0.3 % (0.3-1.12); FO2Hb 88.8 % (94-100); TOTAL HEMOGLOBIN 13.9 G/dl (14.0-17.9)
[~2019-08-14] VITALS: Ht 177.8 cm; Wt 59.2 kg
[2019-08-14] VITALS (19 sets, daily range): BP systolic 101–160; BP diastolic 43–99
[~2019-08-14 05:29] MED LIST changes: +APIX5TAB3 PO; +ATOR40TA PO; -CLOP75TA35 PO; -COLC0.6T69 PO; -CYCL-1 PO; -INDO-12 PO; -TIMO5DRO4 EACHEYE; +ceFAZolin 1000mg inj ONE; +ringers solution, lacted 1,000 ML IV SCH
[2019-08-14] MEDS ORDERED: LORazepam 2 mg/ml vial IV ONE (05:30)
[2019-08-14] MEDS ORDERED: gabapentin 300mg capsule PO ONE (05:30)
[2019-08-14] MEDS ORDERED: Insulin Reg/NS 100units/100mL 100 ML IV SCH ×2 (05:30→13:42)
[2019-08-14] MEDS ORDERED: famotidine 20mg tablet PO ONE (05:30)
[2019-08-14] MEDS ORDERED: metoprolol tartrate 12.5mg (1/2 tablet) PO ONE (05:30)
[2019-08-14] MEDS ORDERED: cefazolin/dext.iso 2gm/50ml 50 ML IV ONE (05:30)
[2019-08-14] MEDS ORDERED: VANCOMYCIN INJ 1000 MG in NORMAL SALINE 250ml IV.SOLN IV ONE (05:30)
[2019-08-14] MEDS ORDERED: midazolam 2 mg/2 ml injection IV ONE (06:00)
[2019-08-14] MEDS ORDERED: LIDOcaine 1% (10mg/ml) 2ml vial ONE (06:13)
[2019-08-14] MEDS ORDERED: albuterol 2.5 MG/3 ML nebule NEB ONE (07:05)
[2019-08-14] MEDS ORDERED: fentaNYL /PF 50mcg/ml 5ml ampule ONE ×3 (07:28→08:33)
[2019-08-14] MEDS ORDERED: MIDAZolam 1mg/ml 10ml vial ONE (07:28)
[2019-08-14] MEDS ORDERED: propofol inj 20 ML IV ONE (07:30)
[2019-08-14] MEDS ORDERED: pancuronium br 1mg/ml inj IV ONE (07:30)
[2019-08-14] MEDS ORDERED: LIDOcaine 2% (20mg/ml) 5ml vial ONE (07:30)
[2019-08-14] MEDS ORDERED: aminocaproic acid 250 MG/1 ML inj. ONE ×2 (07:31→08:00)
[2019-08-14] MEDS ORDERED: epiNEPHrine 1 mg/ml 30ml MDV ONE (07:31)
[2019-08-14] MEDS ORDERED: nitroGLYCERIN in D5W 50mg/250ml (Tridil) infusion IV ONE (07:31)
[2019-08-14] MEDS ORDERED: NORepinephrine 8 MG in NS 250 ML BAG (32 mcg/ml) IV ONE (07:31)
[2019-08-14] MEDS ORDERED: protamine sulf. 10mg/ml inj. IV ONE (07:31)
[2019-08-14] MEDS ORDERED: DOPamine/D5W 400mg/250ml bag IV ONE (07:31)
[2019-08-14] MEDS ORDERED: sevoflurane 250ml liquid IH ONE (07:31)
[2019-08-14] MEDS ORDERED: calcium chloride 100 MG/1 ML inj IV ONE ×2 (08:00→18:35)
[2019-08-14] MEDS ORDERED: albumin (human) 25% 100 ML IV solution IV ONE (08:00)
[2019-08-14] MEDS ORDERED: methylPREDNISolone sod. succ. 500mg inj ONE (08:00)
[2019-08-14] MEDS ORDERED: papaverine 30 mg/ml 2ml inj. ONE (08:00)
[2019-08-14] MEDS ORDERED: LIDOcaine 2% (20 mg/ml) 5ml cardiac syringe ONE (08:00)
[2019-08-14] MEDS ORDERED: potassium Cl 2 mEq/ml inj IV ONE (08:00)
[2019-08-14] MEDS ORDERED: phenylephrine 10mg/ml inj. ONE (08:00)
[2019-08-14] MEDS ORDERED: heparin 10,000 units/1 ML INJ ONE (08:00)
[2019-08-14] MEDS ORDERED: mupirocin 2% nasal ointment 1gm UD NS SCH ×2 (08:00)
[2019-08-14] MEDS ORDERED: sodium bicarbonate (8.4%) 1 mEq/ml syringe ONE (08:00)
[2019-08-14] MEDS ORDERED: MAGNESIUM SULFATE 4 MEQ/ML (5gm/10ml) injection ONE (08:00)
[2019-08-14 08:10] LABS: ABG BASE EXCESS -3.3 mmol/L (-2.0-3.0); ABG HCO3 20.3 mmol/L (22.0-26.0); ABG OXYGEN SATURATION 99.6 % (95-98); ABG PCO2 31.9 mmHg (35.0-45.0); ABG PH 7.421 (7.350-7.450); ABG PO2 468.9 mmHg (60.0-100.0); CL (ABG) 104 mmol/L (99-107); FCOHb 1.7 % (0.5-1.5); FMetHb 0.3 % (0.3-1.12); FO2Hb 97.6 % (94-100); GLUCOSE (ABG) 71 mg/dl (70-104); IONIZED CA (ABG) 1.06 mmol/L (1.03-1.32); K (ABG) 3.8 mmol/L (3.3-5.1); NA (ABG) 135 mmol/L (135-145)
[2019-08-14] MEDS ORDERED: papaverine 30 mg/ml 2ml inj. IA ONE (08:31)
[2019-08-14] MEDS ORDERED: heparin 10,000 units/1 ML INJ IR ONE (08:31)
[2019-08-14 08:51] LABS: ABG BASE EXCESS VENOUS -2.7 mmol/L; ABG HCO3 VENOUS 23.8 mmol/L; ABG PCO2 VENOUS 48.5 mmHg; CL (ABG) 105 mmol/L (99-107); FCOHb VENOUS 1.5 %; FHHb VENOUS 15.2 %; FMetHb VENOUS 0.2 %; FO2Hb VENOUS 83.1 %; GLUCOSE (ABG) 84 mg/dl (70-104); IONIZED CA (ABG) 1.04 mmol/L (1.03-1.32); K (ABG) 3.9 mmol/L (3.3-5.1); NA (ABG) 136 mmol/L (135-145); TOTAL HEMOGLOBIN 11.5 G/dl (14.0-17.9)
[2019-08-14 09:31] LABS: ABG BASE EXCESS -2.4 mmol/L (-2.0-3.0); ABG HCO3 20.7 mmol/L (22.0-26.0); ABG OXYGEN SATURATION 99.3 % (95-98); ABG PCO2 28.6 mmHg (35.0-45.0); ABG PH 7.477 (7.350-7.450); ABG PO2 270.2 mmHg (60.0-100.0); CL (ABG) 105 mmol/L (99-107); FCOHb 1.7 % (0.5-1.5); FMetHb 0.1 % (0.3-1.12); FO2Hb 97.5 % (94-100); GLUCOSE (ABG) 83 mg/dl (70-104); IONIZED CA (ABG) 0.89 mmol/L (1.03-1.32); K (ABG) 4.6 mmol/L (3.3-5.1); NA (ABG) 132 mmol/L (135-145)
[2019-08-14 09:45] LABS: ABG BASE EXCESS -1.2 mmol/L (-2.0-3.0); ABG HCO3 22.7 mmol/L (22.0-26.0); ABG OXYGEN SATURATION 99.6 % (95-98); ABG PCO2 34.1 mmHg (35.0-45.0); ABG PH 7.441 (7.350-7.450); ABG PO2 328.6 mmHg (60.0-100.0); CL (ABG) 103 mmol/L (99-107); FCOHb 1.8 % (0.5-1.5); FO2Hb 97.8 % (94-100); GLUCOSE (ABG) 80 mg/dl (70-104); K (ABG) 4.4 mmol/L (3.3-5.1); NA (ABG) 134 mmol/L (135-145); TOTAL HEMOGLOBIN 8.1 G/dl (14.0-17.9)
[2019-08-14 10:11] LABS: ABG BASE EXCESS -2.4 mmol/L (-2.0-3.0); ABG HCO3 25.6 mmol/L (22.0-26.0); ABG OXYGEN SATURATION 99.1 % (95-98); ABG PCO2 62.8 mmHg (35.0-45.0); ABG PH 7.228 (7.350-7.450); ABG PO2 347.6 mmHg (60.0-100.0); CL (ABG) 104 mmol/L (99-107); FCOHb 0.5 % (0.5-1.5); FMetHb 0.7 % (0.3-1.12); FO2Hb 97.9 % (94-100); GLUCOSE (ABG) 119 mg/dl (70-104); IONIZED CA (ABG) 0.95 mmol/L (1.03-1.32); K (ABG) 3.8 mmol/L (3.3-5.1); NA (ABG) 135 mmol/L (135-145); TOTAL HEMOGLOBIN 9.2 G/dl (14.0-17.9)
[2019-08-14 10:20] LABS: ABG BASE EXCESS -3.5 mmol/L (-2.0-3.0); ABG HCO3 23.4 mmol/L (22.0-26.0); ABG OXYGEN SATURATION 99.2 % (95-98); ABG PCO2 51.6 mmHg (35.0-45.0); ABG PH 7.274 (7.350-7.450); ABG PO2 387.6 mmHg (60.0-100.0); CL (ABG) 103 mmol/L (99-107); FCOHb 0.7 % (0.5-1.5); FMetHb 0.6 % (0.3-1.12); FO2Hb 97.9 % (94-100); GLUCOSE (ABG) 121 mg/dl (70-104); IONIZED CA (ABG) 0.97 mmol/L (1.03-1.32); K (ABG) 3.6 mmol/L (3.3-5.1); NA (ABG) 135 mmol/L (135-145); TOTAL HEMOGLOBIN 8.8 G/dl (14.0-17.9)
[2019-08-14 10:40] LABS: ABG HCO3 25.6 mmol/L (22.0-26.0); ABG OXYGEN SATURATION 99.4 % (95-98); ABG PCO2 53.3 mmHg (35.0-45.0); ABG PO2 413.2 mmHg (60.0-100.0); CL (ABG) 103 mmol/L (99-107); FCOHb 1.3 % (0.5-1.5); FMetHb 0.7 % (0.3-1.12); FO2Hb 97.4 % (94-100); GLUCOSE (ABG) 149 mg/dl (70-104); IONIZED CA (ABG) 0.92 mmol/L (1.03-1.32); K (ABG) 3.6 mmol/L (3.3-5.1); NA (ABG) 137 mmol/L (135-145); TOTAL HEMOGLOBIN 8.1 G/dl (14.0-17.9)
[2019-08-14 10:40] LABS: ABG BASE EXCESS -0.4 mmol/L (-2.0-3.0); ABG HCO3 27.7 mmol/L (22.0-26.0); ABG OXYGEN SATURATION 99.2 % (95-98); ABG PCO2 67.8 mmHg (35.0-45.0); ABG PH 7.229 (7.350-7.450); ABG PO2 354.1 mmHg (60.0-100.0); CL (ABG) 103 mmol/L (99-107); FCOHb 0.9 % (0.5-1.5); FMetHb 0.7 % (0.3-1.12); FO2Hb 97.6 % (94-100); GLUCOSE (ABG) 143 mg/dl (70-104); IONIZED CA (ABG) 0.92 mmol/L (1.03-1.32); K (ABG) 3.6 mmol/L (3.3-5.1); NA (ABG) 138 mmol/L (135-145); TOTAL HEMOGLOBIN 8.3 G/dl (14.0-17.9)
[2019-08-14 11:06] LABS: ABG BASE EXCESS -1.3 mmol/L (-2.0-3.0); ABG OXYGEN SATURATION 99.3 % (95-98); ABG PCO2 50.2 mmHg (35.0-45.0); ABG PH 7.315 (7.350-7.450); CL (ABG) 104 mmol/L (99-107); FCOHb 1.1 % (0.5-1.5); FMetHb 0.6 % (0.3-1.12); FO2Hb 97.6 % (94-100); GLUCOSE (ABG) 150 mg/dl (70-104); NA (ABG) 137 mmol/L (135-145)
[2019-08-14 11:21] LABS: ABG BASE EXCESS -0.2 mmol/L (-2.0-3.0); ABG HCO3 24.7 mmol/L (22.0-26.0); ABG OXYGEN SATURATION 99.4 % (95-98); ABG PH 7.388 (7.350-7.450); ABG PO2 431.4 mmHg (60.0-100.0); CL (ABG) 107 mmol/L (99-107); FCOHb 1.4 % (0.5-1.5); FMetHb 0.9 % (0.3-1.12); FO2Hb 97.1 % (94-100); GLUCOSE (ABG) 144 mg/dl (70-104); IONIZED CA (ABG) 0.85 mmol/L (1.03-1.32); K (ABG) 3.7 mmol/L (3.3-5.1); NA (ABG) 139 mmol/L (135-145); TOTAL HEMOGLOBIN 7.1 G/dl (14.0-17.9)
[2019-08-14 11:35] LABS: ABG BASE EXCESS -0.1 mmol/L (-2.0-3.0); ABG HCO3 23.5 mmol/L (22.0-26.0); ABG OXYGEN SATURATION 99.4 % (95-98); ABG PCO2 33.4 mmHg (35.0-45.0); ABG PH 7.466 (7.350-7.450); ABG PO2 434.9 mmHg (60.0-100.0); CL (ABG) 107 mmol/L (99-107); FCOHb 1.6 % (0.5-1.5); FMetHb 0.7 % (0.3-1.12); FO2Hb 97.1 % (94-100); GLUCOSE (ABG) 154 mg/dl (70-104); IONIZED CA (ABG) 0.84 mmol/L (1.03-1.32); K (ABG) 3.5 mmol/L (3.3-5.1); NA (ABG) 138 mmol/L (135-145)
[2019-08-14 12:11] LABS: ABG BASE EXCESS 0.3 mmol/L (-2.0-3.0); ABG HCO3 22.8 mmol/L (22.0-26.0); ABG OXYGEN SATURATION 99.1 % (95-98); ABG PCO2 27.5 mmHg (35.0-45.0); ABG PH 7.536 (7.350-7.450); ABG PO2 421.6 mmHg (60.0-100.0); CL (ABG) 105 mmol/L (99-107); FMetHb 0.7 % (0.3-1.12); FO2Hb 97.4 % (94-100); GLUCOSE (ABG) 139 mg/dl (70-104); IONIZED CA (ABG) 1.15 mmol/L (1.03-1.32); K (ABG) 3.9 mmol/L (3.3-5.1); NA (ABG) 136 mmol/L (135-145)
[2019-08-14] MEDS ORDERED: epiNEPHrine 0.1mg/ml 10ml syringe ONE (12:21)
[2019-08-14 12:56] LABS: ABG BASE EXCESS VENOUS -7.8 mmol/L; ABG HCO3 VENOUS 19.9 mmol/L; ABG PCO2 VENOUS 51.1 mmHg; ABG PO2 VENOUS 78.3 mmHg; CL (ABG) 106 mmol/L (99-107); FCOHb VENOUS 0.1 %; FHHb VENOUS 9.1 %; FMetHb VENOUS 0.6 %; FO2Hb VENOUS 90.2 %; GLUCOSE (ABG) 147 mg/dl (70-104); IONIZED CA (ABG) 1.02 mmol/L (1.03-1.32); K (ABG) 3.4 mmol/L (3.3-5.1); NA (ABG) 138 mmol/L (135-145)
[2019-08-14] MEDS ORDERED: albumin (Human) 5% 250ml 250 ML IV ONE (13:12)
[2019-08-14] MEDS ORDERED: DOPamine 400mg/D5W 250ml 250 ML IV PRN (13:42)
[2019-08-14] MEDS ORDERED: nitroGLYCERIN-Tridil 50MG/D5W 250 ML IV PRN (13:42)
[2019-08-14] MEDS ORDERED: niCARDipine-NS 40mg/200ml IVPB 200 ML IV PRN (13:42)
[2019-08-14] MEDS ORDERED: magnesium 2GM in 50ml NS 50 ML IV PRN (13:45)
[2019-08-14] MEDS ORDERED: pantoprazole 40 MG vial IV ONE (13:45)
[2019-08-14] MEDS ORDERED: sodium phosphate inj. 30 MMOL in dextrose 5%-water 250 ML IV PRN (13:45)
[2019-08-14] MEDS ORDERED: magnesium 4gm in 100ml NS 100 ML IV PRN (13:45)
[2019-08-14] MEDS ORDERED: metoclopramide 5 mg/ml inj IV PRN (13:45)
[2019-08-14] MEDS ORDERED: normal saline 250ml IV soln 250 ML IV PRN (13:45)
[2019-08-14] MEDS ORDERED: Neutra Phos packet PO PRN (13:45)
[2019-08-14] MEDS ORDERED: acetaminophen 325mg tablet PO PRN ×2 (13:45)
[2019-08-14] MEDS ORDERED: magnesium citrate 296ml oral solution PO PRN (13:45)
[2019-08-14] MEDS ORDERED: insulin glargine (Lantus) pen - multi-dose SQ PRN (13:45)
[2019-08-14] MEDS ORDERED: HYDROcodone/acetaminophen 10/325mg tab PO PRN ×2 (13:45)
[2019-08-14] MEDS ORDERED: sodium phosphate inj. 15 MMOL in dextrose 5%-water 250 ML IV PRN (13:45)
[2019-08-14] MEDS ORDERED: dextrose 50%-water 50ml dispensing syringe IV PRN (13:45)
[2019-08-14] MEDS ORDERED: bisacodyl 10mg suppository rectal RC PRN (13:45)
[2019-08-14] MEDS ORDERED: magnesium hydroxide 30ml (MOM) UD suspension PO PRN (13:45)
[2019-08-14] MEDS ORDERED: mineral oil 133ml enema RC PRN (13:45)
--- NOTE | 2019-08-14 13:45 | NUR ---
Received to room 2007, accompanied by MDs and surgical crew. Placed on ventilator, to radiation monitor, arterial line and PA line pressure monitored. Chest tubes to suction at 20 cm. Barron cath to gravity drainage. Dressings are dry and intact. See assessment record. All vasoactive drugs are infusing via central line.
[2019-08-14 14:00] LABS: BASOPHILS # (AUTO) 0.2 X10'3 (0-0.2); BASOPHILS % (AUTO) 0.7 % (0-1); EOSINOPHILS % (AUTO) 0.1 % (0-6); HEMATOCRIT 35.5 % (42.0-52.0); HEMOGLOBIN 11.4 g/dl (14.0-17.9); LYMPHOCYTES # (AUTO) 1.8 X10'3 (1.1-4.8); LYMPHOCYTES % (AUTO) 6.5 % (21-51); MEAN CORPUSCULAR HEMOGLOBIN 29.9 PG (27.0-31.0); MEAN CORPUSCULAR HGB CONC 32.2 g/dL (33.0-36.5); MEAN CORPUSCULAR VOLUME 92.8 FL (78-98); MEAN PLATELET VOLUME 7.1 FL (7.4-10.4); MONOCYTES # (AUTO) 0.9 X10'3 (0-0.9); MONOCYTES % (AUTO) 3.1 % (2-12); NEUTROPHILS # (AUTO) 24.9 X10'3 (1.8-7.7); NEUTROPHILS % (AUTO) 89.6 % (42-75); PLATELET COUNT 52 X10'3 (140-440); RED BLOOD COUNT 3.82 X10'6 (4.70-6.10); RED CELL DISTRIBUTION WIDTH 14.8 % (11.5-14.5)
[2019-08-14] MEDS: Insulin Reg/NS 100units/100mL 100 ML IV SCH (14:00)
[2019-08-14 14:05] LABS: WHITE BLOOD COUNT 27.8 X10'3 (4.5-11.0)
--- NOTE | 2019-08-14 14:05 | NUR ---
CABG Consult: Pt s/p CABGx1; will need CABG/HH diet eds once stable prior to discharge. Addendum: 08/14/19 at [address] Amended: Links added.
[2019-08-14 14:06] LABS: ABG BASE EXCESS -8.4 mmol/L (-2.0-3.0); ABG HCO3 18.1 mmol/L (22.0-26.0); ABG OXYGEN SATURATION 98.9 % (95-98); ABG PCO2 (T) 40.1 mmHg (35.0-45.0); ABG PH (T) 7.271 (7.350-7.450); ABG PO2 (T) 240.8 mmHg (83-108); FCOHb 0.4 % (0.5-1.5); FLOW 60 L/min; FMetHb 0.2 % (0.3-1.12); FO2Hb 98.3 % (94-100); PATIENT TEMPERATURE 36.6; PEEP 5 cm H2O; RESPIRATORY RATE 10 b/min; TIDAL VOLUME 650 mL; TOTAL HEMOGLOBIN 12.3 G/dl (14.0-17.9)
[2019-08-14 14:13] LABS: ALANINE AMINOTRANSFERASE 43 U/L (12-78); ALBUMIN 2.9 G/DL (3.4-5.0); ALBUMIN/GLOBULIN RATIO 2.4 (1.1-1.5); ALKALINE PHOSPHATASE 48 IU/L (46-116); ANION GAP 17 (8-16); ASPARTATE AMINO TRANSFERASE 423 U/L (10-37); BILIRUBIN,TOTAL 0.9 MG/DL (0.1-1.0); BLOOD UREA NITROGEN 12 MG/DL (7-18); BUN/CREATININE RATIO 11.7 (5.4-32.0); CALCIUM 7.2 MG/DL (8.5-10.1); CHLORIDE 108 MMOL/L (99-107); CREATININE 1.03 MG/DL (0.60-1.10); GLUCOSE 165 MG/DL (70-104); MAGNESIUM 3.4 MG/DL (1.5-2.4); PHOSPHORUS 5.7 MG/DL (2.3-4.5); POTASSIUM 4.9 MMOL/L (3.5-5.1); SODIUM 145 MMOL/L (135-145); TOTAL CARBON DIOXIDE 19.9 MMOL/L (24-32); TOTAL PROTEIN 4.1 G/DL (6.4-8.2); eGFR 71 ML/MIN
[2019-08-14 14:15] LABS: PARTIAL THROMBOPLASTIN TIME 75 SECONDS (22-32)
[2019-08-14 14:17] LABS: PLATELET ESTIMATE DECREASED; TOTAL CELLS COUNTED 100
[2019-08-14] MEDS: sodium chloride 0.45% 1,000 ML IV SCH (15:09)
[2019-08-14 15:22] LABS: TOTAL HEMOGLOBIN 6.9 G/dl (14.0-17.9)
[2019-08-14 15:23] LABS: TOTAL HEMOGLOBIN 6.5 G/dl (14.0-17.9)
[2019-08-14] MEDS: albumin (Human) 5% 250ml 250 ML IV PRN ×2 (15:34→15:35)
[2019-08-14 15:41] LABS: ACTIVATED CLOTTING TIME 172 SEC (101-148)
[2019-08-14] MEDS: morphine 4 MG/ML inj SYRINge IV PRN ×2 (16:12→17:16)
[2019-08-14] MEDS: ceFAZolin 1GM/D5W- ADD-VANTAGE 50 ML IV SCH (17:15)
--- NOTE | 2019-08-14 18:15 | NUR ---
RN Note -Received report from QUINTIN Brito
--- NOTE | 2019-08-14 18:28 | NUR ---
End of shift summary Patient received albumin X3 immediately out of OR for decreased CI. Patient was a little oozy; reported to MD along with COAG labs; 1unit of platelets and [address] output slowed and CI improved to above 2.5 Patient has been stable since; follows commands and moves all extremities. On CPAP since 1600 @40% Patient BP now trending down with CI 3.1; charge nurse advises to get STAT H&H. Report given
[2019-08-14 18:40] LABS: MEAN CORPUSCULAR HEMOGLOBIN 29.8 PG (27.0-31.0); MEAN CORPUSCULAR HGB CONC 32.1 g/dL (33.0-36.5); PLATELET COUNT 61 X10'3 (140-440); RED BLOOD COUNT 2.08 X10'6 (4.70-6.10); RED CELL DISTRIBUTION WIDTH 14.9 % (11.5-14.5); WHITE BLOOD COUNT 16.9 X10'3 (4.5-11.0)
[2019-08-14 18:47] LABS: HEMOGLOBIN 6.2 g/dl (14.0-17.9)
[2019-08-14 18:48] LABS: HEMATOCRIT 19.4 % (42.0-52.0)
[2019-08-14] MEDS ORDERED: CALCIUM CHLORIDE IV ONE (18:50)
[2019-08-14] MEDS ORDERED: NORMAL SALINE IV ONE (18:50)
[2019-08-14] MEDS: vancomycin/NS 1 GM ADD-VANTAGE 250 ML IV SCH (20:44)
[2019-08-14] MEDS: baclofen 10mg tablet PO SCH (20:44)
[2019-08-14] MEDS: mupirocin 2% nasal ointment 1gm UD NS SCH (20:44)
[2019-08-14] MEDS: sennosides/docusate sodium tablet PO SCH (20:44)
[2019-08-14] MEDS: gabapentin 300mg capsule PO SCH (21:00)
[2019-08-14 21:11] LABS: ABG BASE EXCESS -4.3 mmol/L (-2.0-3.0); ABG HCO3 20.1 mmol/L (22.0-26.0); ABG OXYGEN SATURATION 97.6 % (95-98); ABG PCO2 (T) 34.3 mmHg (35.0-45.0); ABG PH (T) 7.387 (7.350-7.450); ABG PO2 (T) 121.5 mmHg (83-108); FCOHb 0.3 % (0.5-1.5); FMetHb 0.2 % (0.3-1.12); FO2Hb 97.1 % (94-100); PATIENT TEMPERATURE 37.3; PEEP 5 cm H2O; TIDAL VOLUME 449 mL; TOTAL HEMOGLOBIN 8.4 G/dl (14.0-17.9)
[2019-08-14 21:16] LABS: PLATELET ESTIMATE DECREASED
[2019-08-14 21:38] LABS: BASOPHILS % (AUTO) 0 % (0-1); EOSINOPHILS % (AUTO) 0 % (0-6); HEMOGLOBIN 7.9 g/dl (14.0-17.9); LYMPHOCYTES # (AUTO) 0.4 X10'3 (1.1-4.8); LYMPHOCYTES % (AUTO) 2.2 % (21-51); MEAN CORPUSCULAR HEMOGLOBIN 30.3 PG (27.0-31.0); MEAN CORPUSCULAR HGB CONC 32.7 g/dL (33.0-36.5); MEAN CORPUSCULAR VOLUME 92.8 FL (78-98); MEAN PLATELET VOLUME 8.6 FL (7.4-10.4); MONOCYTES # (AUTO) 0.5 X10'3 (0-0.9); MONOCYTES % (AUTO) 3.3 % (2-12); NEUTROPHILS # (AUTO) 15.9 X10'3 (1.8-7.7); NEUTROPHILS % (AUTO) 94.5 % (42-75); PLATELET COUNT 53 X10'3 (140-440); RED BLOOD COUNT 2.59 X10'6 (4.70-6.10); RED CELL DISTRIBUTION WIDTH 14.2 % (11.5-14.5); WHITE BLOOD COUNT 16.8 X10'3 (4.5-11.0)
[2019-08-14 21:49] LABS: ALBUMIN 3.4 G/DL (3.4-5.0); ANION GAP 16 (8-16); BLOOD UREA NITROGEN 13 MG/DL (7-18); CALCIUM 7.5 MG/DL (8.5-10.1); CHLORIDE 111 MMOL/L (99-107); GLUCOSE 142 MG/DL (70-104); MAGNESIUM 2.5 MG/DL (1.5-2.4); PHOSPHORUS 3.2 MG/DL (2.3-4.5); POTASSIUM 4.2 MMOL/L (3.5-5.1); SODIUM 149 MMOL/L (135-145); TOTAL CARBON DIOXIDE 22.4 MMOL/L (24-32); eGFR 54 ML/MIN
[2019-08-14] MEDS: potassium Cl 20mEq/100mL bag 100 ML IV PRN (22:44)
[2019-08-15] VITALS (24 sets, daily range): BP systolic 90–146; BP diastolic 42–60
[2019-08-15] MEDS: ceFAZolin 1GM/D5W- ADD-VANTAGE 50 ML IV SCH ×3 (00:13→17:28)
[2019-08-15 03:08] LABS: BASOPHILS % (AUTO) 0.1 % (0-1); EOSINOPHILS % (AUTO) 0 % (0-6); HEMOGLOBIN 7.4 g/dl (14.0-17.9); LYMPHOCYTES # (AUTO) 0.6 X10'3 (1.1-4.8); LYMPHOCYTES % (AUTO) 4.2 % (21-51); MEAN CORPUSCULAR HEMOGLOBIN 30.6 PG (27.0-31.0); MEAN CORPUSCULAR HGB CONC 33.8 g/dL (33.0-36.5); MEAN CORPUSCULAR VOLUME 90.7 FL (78-98); MEAN PLATELET VOLUME 8.8 FL (7.4-10.4); MONOCYTES # (AUTO) 0.6 X10'3 (0-0.9); MONOCYTES % (AUTO) 3.7 % (2-12); NEUTROPHILS # (AUTO) 13.6 X10'3 (1.8-7.7); RED BLOOD COUNT 2.43 X10'6 (4.70-6.10); RED CELL DISTRIBUTION WIDTH 14.3 % (11.5-14.5); WHITE BLOOD COUNT 14.8 X10'3 (4.5-11.0)
[2019-08-15 03:12] LABS: PLATELET COUNT 48 X10'3 (140-440)
[2019-08-15 03:18] LABS: PARTIAL THROMBOPLASTIN TIME 33 SECONDS (22-32)
[2019-08-15 03:21] LABS: ALANINE AMINOTRANSFERASE 34 U/L (12-78); ALBUMIN 3.2 G/DL (3.4-5.0); ALBUMIN/GLOBULIN RATIO 1.9 (1.1-1.5); ALKALINE PHOSPHATASE 34 IU/L (46-116); ANION GAP 7 (8-16); ASPARTATE AMINO TRANSFERASE 247 U/L (10-37); BILIRUBIN,TOTAL 0.7 MG/DL (0.1-1.0); BLOOD UREA NITROGEN 16 MG/DL (7-18); BUN/CREATININE RATIO 14.2 (5.4-32.0); CALCIUM 7.2 MG/DL (8.5-10.1); CHLORIDE 111 MMOL/L (99-107); CREATININE 1.13 MG/DL (0.60-1.10); GLUCOSE 112 MG/DL (70-104); MAGNESIUM 2.6 MG/DL (1.5-2.4); PHOSPHORUS 2.4 MG/DL (2.3-4.5); POTASSIUM 4.8 MMOL/L (3.5-5.1); SODIUM 146 MMOL/L (135-145); TOTAL CARBON DIOXIDE 28.2 MMOL/L (24-32); TOTAL PROTEIN 4.9 G/DL (6.4-8.2); eGFR 64 ML/MIN
[2019-08-15] MEDS: morphine 4 MG/ML inj SYRINge IV PRN (03:23)
--- NOTE | 2019-08-15 05:30 | NUR ---
RN Note -MD Communication Dr. Grey notified of critical Hematocrit of 22.0 critical platelets of 48. Pt doing very well, sat up on side of bed and stood, tolerated well.
[2019-08-15] MEDS ORDERED: aspirin 325mg tablet, delayed-release (Ecotrin) PO SCH (08:00)
[2019-08-15] MEDS: atorvastatin 10mg tablet PO SCH (08:07)
[2019-08-15] MEDS: metoprolol tartrate 12.5mg (1/2 tablet) PO SCH ×2 (08:07→20:55)
[2019-08-15] MEDS: sennosides/docusate sodium tablet PO SCH ×2 (08:07→20:53)
[2019-08-15] MEDS: pantoprazole 40mg Tablet.DR PO SCH (08:07)
[2019-08-15] MEDS: baclofen 10mg tablet PO SCH ×3 (08:08→20:53)
[2019-08-15] MEDS: gabapentin 300mg capsule PO SCH ×3 (08:08→21:07)
[2019-08-15] MEDS: mupirocin 2% nasal ointment 1gm UD NS SCH ×2 (08:09→20:53)
[2019-08-15] MEDS: vancomycin/NS 1 GM ADD-VANTAGE 250 ML IV SCH ×2 (09:02→20:52)
[2019-08-15 09:28] LABS: HEMOGLOBIN 7.1 g/dl (14.0-17.9); MEAN CORPUSCULAR HGB CONC 32.8 g/dL (33.0-36.5); MEAN CORPUSCULAR VOLUME 91.4 FL (78-98); MEAN PLATELET VOLUME 8.8 FL (7.4-10.4); RED BLOOD COUNT 2.36 X10'6 (4.70-6.10); RED CELL DISTRIBUTION WIDTH 14.1 % (11.5-14.5); WHITE BLOOD COUNT 18.4 X10'3 (4.5-11.0)
[2019-08-15 09:37] LABS: HEMATOCRIT 21.6 % (42.0-52.0); PLATELET COUNT 49 X10'3 (140-440)
[2019-08-15] MEDS ORDERED: furosemide 40mg/4ml inj IV ONE (10:05)
[2019-08-15] MEDS ORDERED: desmopressin inj. 20 MCG in normal saline 100ml IV soln 100 ML IV ONE (10:10)
[2019-08-15 10:51] LABS: PARTIAL THROMBOPLASTIN TIME 30 SECONDS (22-32)
--- NOTE | 2019-08-15 12:44 | NUR ---
CABG Consult: Pt seen by RD for written/verbal CABG/HH diet eds w/ RD contact information provided. Pt reports drinks premier proteins at home, has high protein foods stocked up, and endorses good appetite post-op. Does not want additional proteins/ONS at this time. Will continue to monitor. Addendum: 08/15/19 at [address] Amended: Links added.
[2019-08-15] MEDS ORDERED: [UNRECOGNIZED DRUG - OTHER] PO SCH ×2 (17:00)
--- NOTE | 2019-08-15 18:36 | NUR ---
patient became more restless and impulsive as the day progressed, trying to get out of bed alone, not using call light and not following any sternal precautions. His notified us today that he drinks a substantial amount of alcohol daily. MD notified of increasing restlessness with possibility of withdraws; orders received for patient to have alcohol. Spoke with who encouraged us to try vodka. Also placed sternal vest on patient, bed alarm on, items and call light in reach.
[2019-08-15] MEDS: Insulin Reg/NS 100units/100mL 100 ML IV SCH (19:26)
--- NOTE | 2019-08-15 20:30 | NUR ---
Pt in chair for dinner, found out of bed standing at bedside, tangled in yousif Reid; states "trying to get back in bed"; pt assisted back to bed, siderails up, seems slightly disoriented, pt moved from 2006 to 2007, closer to nursing station.
[2019-08-15] MEDS ORDERED: [UNRECOGNIZED DRUG - OTHER] PO ONE (22:20)
[2019-08-15] MEDS: ipratropium/albuterol 3ml nebule NEB SCH (23:28)
--- NOTE | 2019-08-15 23:38 | NUR ---
Breathing Treatment was not finished because patient was desaturating into the 70's. Post treatment vitals were not recorded because patient did not finish treatment. Patient is back on the non rebreather mask at 15 LPM and saturating at 90%.
[2019-08-15 23:55] LABS: ABG BASE EXCESS -1.3 mmol/L (-2.0-3.0); ABG HCO3 23.6 mmol/L (22.0-26.0); ABG OXYGEN SATURATION 80.8 % (95-98); ABG PCO2 (T) 40.2 mmHg (35.0-45.0); ABG PH (T) 7.387 (7.350-7.450); ABG PO2 (T) 47.6 mmHg (83-108); ALLEN'S TEST POSITIVE; FCOHb 0.3 % (0.5-1.5); FLOW 15 L/min; FMetHb 0.1 % (0.3-1.12); FO2Hb 80.5 % (94-100); TOTAL HEMOGLOBIN 8.7 G/dl (14.0-17.9)
[2019-08-16] VITALS (24 sets, daily range): BP systolic 84–147; BP diastolic 46–75
[2019-08-16] MEDS ORDERED: furosemide 40mg/4ml inj IV ONE (00:10)
[2019-08-16] MEDS: ceFAZolin 1GM/D5W- ADD-VANTAGE 50 ML IV SCH (00:47)
[2019-08-16] MEDS: morphine 4 MG/ML inj SYRINge IV PRN (03:06)
[2019-08-16] MEDS: ipratropium/albuterol 3ml nebule NEB SCH ×6 (03:21→23:04)
[2019-08-16 03:46] LABS: BASOPHILS % (AUTO) 0.2 % (0-1); EOSINOPHILS % (AUTO) 0 % (0-6); HEMATOCRIT 24.1 % (42.0-52.0); LYMPHOCYTES # (AUTO) 0.6 X10'3 (1.1-4.8); LYMPHOCYTES % (AUTO) 2.6 % (21-51); MEAN CORPUSCULAR HEMOGLOBIN 30.8 PG (27.0-31.0); MEAN CORPUSCULAR VOLUME 93.3 FL (78-98); MEAN PLATELET VOLUME 9.1 FL (7.4-10.4); MONOCYTES # (AUTO) 0.7 X10'3 (0-0.9); MONOCYTES % (AUTO) 2.8 % (2-12); NEUTROPHILS # (AUTO) 22.4 X10'3 (1.8-7.7); NEUTROPHILS % (AUTO) 94.4 % (42-75); PLATELET COUNT 56 X10'3 (140-440); RED BLOOD COUNT 2.58 X10'6 (4.70-6.10); RED CELL DISTRIBUTION WIDTH 14.3 % (11.5-14.5); WHITE BLOOD COUNT 23.7 X10'3 (4.5-11.0)
[2019-08-16 03:58] LABS: ALBUMIN 2.8 G/DL (3.4-5.0); ANION GAP 4 (8-16); BLOOD UREA NITROGEN 25 MG/DL (7-18); BUN/CREATININE RATIO 20.3 (5.4-32.0); CALCIUM 6.9 MG/DL (8.5-10.1); CHLORIDE 104 MMOL/L (99-107); CREATININE 1.23 MG/DL (0.60-1.10); GLUCOSE 145 MG/DL (70-104); MAGNESIUM 2.1 MG/DL (1.5-2.4); PHOSPHORUS 3.3 MG/DL (2.3-4.5); POTASSIUM 4.3 MMOL/L (3.5-5.1); SODIUM 137 MMOL/L (135-145); TOTAL CARBON DIOXIDE 29.3 MMOL/L (24-32); eGFR 58 ML/MIN
[2019-08-16 05:11] LABS: ABG BASE EXCESS -0.6 mmol/L (-2.0-3.0); ABG HCO3 23.4 mmol/L (22.0-26.0); ABG OXYGEN SATURATION 80.6 % (95-98); ABG PCO2 (T) 36.6 mmHg (35.0-45.0); ABG PH (T) 7.425 (7.350-7.450); ABG PO2 (T) 46.8 mmHg (83-108); ALLEN'S TEST POSITIVE; FCOHb 0.3 % (0.5-1.5); FLOW 15 L/min; FMetHb 0.1 % (0.3-1.12); FO2Hb 80.3 % (94-100); PATIENT TEMPERATURE 37.4; TOTAL HEMOGLOBIN 9.4 G/dl (14.0-17.9)
[2019-08-16] MEDS: potassium Cl 20mEq/100mL bag 100 ML IV PRN (05:15)
--- NOTE | 2019-08-16 05:49 | NUR ---
RN Note -Shift Summary Called Dr. Grey last night regarding SOB and pt desaturating, lungs wet with crackles. Pt placed on nonrebreather at 15L and continued to desat into the mid 80's with minimal exertion. Lasix given and pt diuresed well, lung sounds cleared and SOB resolved. Pt, however, was still not oxygenating well, placed on salter. ABG drawn at 0500 after a couple hours on salter and PO2 was 46.8, pt is not SOB, pleasant and cooperative, alert and oriented. Placed on HiFLo nasal cannula at 45L and 70%. Saturation now 88-92%
[2019-08-16] MEDS: metoprolol tartrate 12.5mg (1/2 tablet) PO SCH ×2 (08:00→20:39)
[2019-08-16] MEDS: pantoprazole 40mg Tablet.DR PO SCH (08:13)
[2019-08-16] MEDS: atorvastatin 10mg tablet PO SCH (08:13)
[2019-08-16] MEDS: sennosides/docusate sodium tablet PO SCH ×2 (08:13→20:39)
[2019-08-16] MEDS: aspirin 81mg tablet.DR PO SCH (08:13)
[2019-08-16] MEDS: baclofen 10mg tablet PO SCH ×3 (08:14→20:41)
[2019-08-16] MEDS: gabapentin 300mg capsule PO SCH ×2 (08:14→12:05)
[2019-08-16] MEDS: furosemide 40mg/4ml inj IV SCH ×2 (08:14→20:41)
[2019-08-16] MEDS: mupirocin 2% nasal ointment 1gm UD NS SCH (08:15)
[2019-08-16] MEDS: [UNRECOGNIZED DRUG - OTHER] PO SCH ×3 (09:04→19:16)
--- NOTE | 2019-08-16 10:12 | NUR ---
notified Dr Grey of pt's BP 82/40 (54), lasix given at 0800 and only 150 cc urine output since lasix dose given. no new orders received. would like to be notified when SBP dips into the 70s.
[2019-08-16] MEDS: sodium chloride 0.45% 1,000 ML IV SCH (13:42)
[2019-08-16 15:41] LABS: ABG BASE EXCESS -2.7 mmol/L (-2.0-3.0); ABG HCO3 20.7 mmol/L (22.0-26.0); ABG PCO2 (T) 30.2 mmHg (35.0-45.0); ABG PH (T) 7.453 (7.350-7.450); ABG PO2 (T) 46.7 mmHg (83-108); ALLEN'S TEST POSITIVE; FCOHb 0.3 % (0.5-1.5); FLOW 50 L/min; FMetHb 0.2 % (0.3-1.12); FO2Hb 81.6 % (94-100); TOTAL HEMOGLOBIN 8.5 G/dl (14.0-17.9)
--- NOTE | 2019-08-16 15:46 | NUR ---
notified Dr. Grey of pt's PO2 of 46.7 and increased work of breathing. RT placed pt on CPAP.
[2019-08-16 17:30] LABS: ABG BASE EXCESS 1.1 mmol/L (-2.0-3.0); ABG HCO3 24.5 mmol/L (22.0-26.0); ABG OXYGEN SATURATION 84.9 % (95-98); ABG PH (T) 7.476 (7.350-7.450); ABG PO2 (T) 49.8 mmHg (83-108); ALLEN'S TEST POSITIVE; FCOHb 0.3 % (0.5-1.5); FMetHb 0.1 % (0.3-1.12); FO2Hb 84.6 % (94-100); TOTAL HEMOGLOBIN 8.5 G/dl (14.0-17.9)
--- NOTE | 2019-08-16 18:16 | NUR ---
Problems reprioritized. Patient report given, questions answered & plan of care reviewed with Mac RN.
[2019-08-17] VITALS (24 sets, daily range): BP systolic 87–147; BP diastolic 48–75
[2019-08-17] MEDS: ipratropium/albuterol 3ml nebule NEB SCH ×6 (02:58→23:08)
[2019-08-17 03:07] LABS: BASOPHILS % (AUTO) 0.1 % (0-1); EOSINOPHILS % (AUTO) 0 % (0-6); HEMATOCRIT 22.4 % (42.0-52.0); HEMOGLOBIN 7.5 g/dl (14.0-17.9); LYMPHOCYTES # (AUTO) 0.7 X10'3 (1.1-4.8); LYMPHOCYTES % (AUTO) 3.5 % (21-51); MEAN CORPUSCULAR HEMOGLOBIN 30.7 PG (27.0-31.0); MEAN CORPUSCULAR HGB CONC 33.5 g/dL (33.0-36.5); MEAN CORPUSCULAR VOLUME 91.6 FL (78-98); MEAN PLATELET VOLUME 8.7 FL (7.4-10.4); MONOCYTES # (AUTO) 0.9 X10'3 (0-0.9); MONOCYTES % (AUTO) 4.2 % (2-12); NEUTROPHILS % (AUTO) 92.2 % (42-75); PLATELET COUNT 67 X10'3 (140-440); RED BLOOD COUNT 2.45 X10'6 (4.70-6.10); RED CELL DISTRIBUTION WIDTH 14.2 % (11.5-14.5); WHITE BLOOD COUNT 20.7 X10'3 (4.5-11.0)
[2019-08-17 03:22] LABS: ALBUMIN 2.6 G/DL (3.4-5.0); ANION GAP 3 (8-16); BLOOD UREA NITROGEN 31 MG/DL (7-18); BUN/CREATININE RATIO 30.7 (5.4-32.0); CALCIUM 7.4 MG/DL (8.5-10.1); CHLORIDE 102 MMOL/L (99-107); CREATININE 1.01 MG/DL (0.60-1.10); GLUCOSE 125 MG/DL (70-104); MAGNESIUM 2.5 MG/DL (1.5-2.4); PHOSPHORUS 2.1 MG/DL (2.3-4.5); POTASSIUM 3.9 MMOL/L (3.5-5.1); SODIUM 135 MMOL/L (135-145); TOTAL CARBON DIOXIDE 30.1 MMOL/L (24-32); eGFR 73 ML/MIN
[2019-08-17] MEDS: potassium Cl 20mEq/100mL bag 100 ML IV PRN (03:48)
--- NOTE | 2019-08-17 05:58 | NUR ---
RN Note -Pt tolerating HiFlo. Desats with exertion but recovers quickly. Needs more education with IS; difficult to use IS with out desaturating.
--- NOTE | 2019-08-17 06:18 | NUR ---
Patient in room CICU 2007. I have received report from Mac RN and had the opportunity to ask questions and assume patient care.
[2019-08-17] MEDS: atorvastatin 10mg tablet PO SCH (08:02)
[2019-08-17] MEDS: metoprolol tartrate 12.5mg (1/2 tablet) PO SCH ×2 (08:02→20:38)
[2019-08-17] MEDS: pantoprazole 40mg Tablet.DR PO SCH (08:03)
[2019-08-17] MEDS: aspirin 81mg tablet.DR PO SCH (08:03)
[2019-08-17] MEDS: sennosides/docusate sodium tablet PO SCH ×2 (08:03→20:00)
[2019-08-17] MEDS: baclofen 10mg tablet PO SCH ×3 (08:03→20:38)
[2019-08-17] MEDS: furosemide 40mg/4ml inj IV SCH ×2 (08:03→20:38)
[2019-08-17] MEDS: [UNRECOGNIZED DRUG - OTHER] PO SCH ×3 (08:22→17:53)
--- NOTE | 2019-08-17 12:00 | NUR ---
tube feed residuals 400cc returned 300 cc and flushed with 30 cc water. will recheck residuals in 1 hr. Addendum: 08/17/19 at 1248 by Randee Spivey RN documentation on wrong pt
--- NOTE | 2019-08-17 15:15 | NUR ---
HEATER ON INCORRECT SETTING WILL POSTAGE MACHINE OPERATOR RN Addendum: 08/17/19 at 1516 by Mer Tabares RT Amended: Links added.
--- NOTE | 2019-08-17 16:57 | NUR ---
called pt report to Katherine RIBEIRO; all questions answered.
--- NOTE | 2019-08-17 17:10 | NUR ---
Report called to receiving nurse. Transferred via ICU bed with all belongings. Special Issues communicated to receiving nurse, Katherine RIBEIRO.
--- NOTE | 2019-08-17 18:20 | NUR ---
Patient in room ICU 2045. I have received report from Katherine RIBEIRO and had the opportunity to ask questions and assume patient care.
--- NOTE | 2019-08-17 18:24 | NUR ---
Problems reprioritized. Patient report given, questions answered & plan of care reviewed with QUINTIN Broussard.
[2019-08-17] MEDS: ondansetron/PF 4mg/2ml inj IV PRN (20:55)
[2019-08-18] VITALS (24 sets, daily range): BP systolic 95–148; BP diastolic 52–86
[2019-08-18] MEDS: ipratropium/albuterol 3ml nebule NEB SCH ×6 (03:00→23:00)
[2019-08-18 03:15] LABS: BASOPHILS % (AUTO) 0.1 % (0-1); EOSINOPHILS % (AUTO) 0 % (0-6); HEMATOCRIT 23.3 % (42.0-52.0); HEMOGLOBIN 7.7 g/dl (14.0-17.9); LYMPHOCYTES # (AUTO) 1.1 X10'3 (1.1-4.8); LYMPHOCYTES % (AUTO) 4.3 % (21-51); MEAN CORPUSCULAR HEMOGLOBIN 30.3 PG (27.0-31.0); MEAN CORPUSCULAR HGB CONC 33.2 g/dL (33.0-36.5); MEAN CORPUSCULAR VOLUME 91.2 FL (78-98); MEAN PLATELET VOLUME 8.3 FL (7.4-10.4); MONOCYTES # (AUTO) 1.8 X10'3 (0-0.9); NEUTROPHILS # (AUTO) 22.5 X10'3 (1.8-7.7); NEUTROPHILS % (AUTO) 88.6 % (42-75); PLATELET COUNT 101 X10'3 (140-440); RED BLOOD COUNT 2.56 X10'6 (4.70-6.10); RED CELL DISTRIBUTION WIDTH 14.1 % (11.5-14.5)
[2019-08-18 03:32] LABS: WHITE BLOOD COUNT 25.4 X10'3 (4.5-11.0)
[2019-08-18 03:37] LABS: ALBUMIN 2.6 G/DL (3.4-5.0); ANION GAP 7 (8-16); BLOOD UREA NITROGEN 26 MG/DL (7-18); CALCIUM 7.5 MG/DL (8.5-10.1); CHLORIDE 101 MMOL/L (99-107); CREATININE 0.93 MG/DL (0.60-1.10); GLUCOSE 102 MG/DL (70-104); MAGNESIUM 2.3 MG/DL (1.5-2.4); PHOSPHORUS 1.8 MG/DL (2.3-4.5); POTASSIUM 3.5 MMOL/L (3.5-5.1); SODIUM 137 MMOL/L (135-145); TOTAL CARBON DIOXIDE 28.9 MMOL/L (24-32); eGFR 80 ML/MIN
[2019-08-18 03:56] LABS: ANISOCYTOSIS 1+; NUCLEATED RED BLOOD CELLS 2 /100WBC (0-0); PLATELET ESTIMATE DECREASED; POLYCHROMASIA FEW; STOMATOCYTES FEW; TOTAL CELLS COUNTED 100
[2019-08-18] MEDS: pantoprazole 40mg Tablet.DR PO SCH (07:30)
[2019-08-18] MEDS: baclofen 10mg tablet PO SCH ×3 (08:00→21:00)
[2019-08-18] MEDS: sennosides/docusate sodium tablet PO SCH ×2 (08:00→20:00)
[2019-08-18] MEDS: atorvastatin 10mg tablet PO SCH (08:00)
[2019-08-18] MEDS: [UNRECOGNIZED DRUG - OTHER] PO SCH ×3 (08:00→18:00)
[2019-08-18] MEDS: aspirin 81mg tablet.DR PO SCH (08:00)
[2019-08-18] MEDS: metoprolol tartrate 12.5mg (1/2 tablet) PO SCH ×2 (08:00→21:56)
[2019-08-18] MEDS: furosemide 40mg/4ml inj IV SCH ×2 (08:01→20:23)
[2019-08-18] MEDS: ondansetron/PF 4mg/2ml inj IV PRN (08:06)
--- NOTE | 2019-08-18 08:15 | NUR ---
Patient was having nausea and vomiting during the morning med pass and assessment, 50ml emesis yellowish, also patient is having a cough with pinkish sputum. Patient will take his mornign medications at a later time today when he is not nauseated. Will continue to monitor
[2019-08-18] MEDS: metoclopramide 5 mg/ml inj IV SCH ×4 (09:14→20:24)
--- NOTE | 2019-08-18 11:30 | NUR ---
Patient still slightly nauseated, does not wish to take morning medications at this time including vodka, will continue to monitor and when patient can tolerate will administer medications. Patient was up to commode, re-educated on sternal precautions, had BM. Patient is now working with PT, will continue to monitor.
--- NOTE | 2019-08-18 11:45 | NUR ---
Patient walked with FWW and PT, back in bedside chair, will continue to monitor.
--- NOTE | 2019-08-18 13:34 | NUR ---
Patient was in bedside chair for lunch, wanted to get back to bed, transferred with 2 person, min assist and sternal precautions. Patient ate only applesauce and some of his fruit. Patient again does not want to have vodka with meal, also is still refusing the morning medications as he still is having slight nausea. Will continue to encourage medications and monitor patient closely.
[2019-08-18] MEDS: sodium chloride 0.45% 1,000 ML IV SCH (13:42)
--- NOTE | 2019-08-18 14:10 | NUR ---
Patient's PIV was leaking and irritating, removed with cannula intact gauze with tape applied.
--- NOTE | 2019-08-18 15:01 | NUR ---
RT in to assess patient and turned the Fio2 to 50%, will continue to monitor.
--- NOTE | 2019-08-18 16:16 | NUR ---
Changed the IJ dressing and found accumulated liquid under the dressing. CRN was notified and assessed IJ, instructed to cover the proximal port and to only use the distal port. Will continue to monitor.
--- NOTE | 2019-08-18 18:19 | NUR ---
Problems reprioritized. Patient report given, questions answered & plan of care reviewed with Noemi RIBEIRO. Patient stable at transfer of care.
[2019-08-18 19:24] LABS: MAGNESIUM 2.5 MG/DL (1.5-2.4); POTASSIUM 3.5 MMOL/L (3.5-5.1)
[2019-08-18] MEDS: potassium Cl 20mEq/100mL bag 100 ML IV PRN (20:24)
[2019-08-19] VITALS (29 sets, daily range): BP systolic 91–149; BP diastolic 37–71
[2019-08-19] MEDS: potassium Cl 20mEq/100mL bag 100 ML IV PRN (01:06)
[2019-08-19] MEDS: ipratropium/albuterol 3ml nebule NEB SCH ×6 (03:19→22:58)
[2019-08-19 03:59] LABS: BASOPHILS % (AUTO) 0.1 % (0-1); EOSINOPHILS % (AUTO) 0.1 % (0-6); LYMPHOCYTES # (AUTO) 1.2 X10'3 (1.1-4.8); MEAN CORPUSCULAR HEMOGLOBIN 30.5 PG (27.0-31.0); MEAN CORPUSCULAR HGB CONC 33.3 g/dL (33.0-36.5); MEAN CORPUSCULAR VOLUME 91.6 FL (78-98); MEAN PLATELET VOLUME 7.9 FL (7.4-10.4); MONOCYTES # (AUTO) 2.7 X10'3 (0-0.9); MONOCYTES % (AUTO) 8.8 % (2-12); NEUTROPHILS # (AUTO) 26.6 X10'3 (1.8-7.7); PLATELET COUNT 136 X10'3 (140-440); RED BLOOD COUNT 2.02 X10'6 (4.70-6.10); RED CELL DISTRIBUTION WIDTH 14.1 % (11.5-14.5)
[2019-08-19 04:10] LABS: ALANINE AMINOTRANSFERASE 22 U/L (12-78); ALBUMIN 2.4 G/DL (3.4-5.0); ALBUMIN/GLOBULIN RATIO 0.8 (1.1-1.5); ALKALINE PHOSPHATASE 66 IU/L (46-116); ANION GAP 7 (8-16); ASPARTATE AMINO TRANSFERASE 66 U/L (10-37); BILIRUBIN,TOTAL 0.8 MG/DL (0.1-1.0); BLOOD UREA NITROGEN 31 MG/DL (7-18); BUN/CREATININE RATIO 29.8 (5.4-32.0); CALCIUM 7.5 MG/DL (8.5-10.1); CHLORIDE 100 MMOL/L (99-107); CREATININE 1.04 MG/DL (0.60-1.10); GLUCOSE 90 MG/DL (70-104); MAGNESIUM 2.4 MG/DL (1.5-2.4); PHOSPHORUS 2.1 MG/DL (2.3-4.5); POTASSIUM 4.2 MMOL/L (3.5-5.1); SODIUM 134 MMOL/L (135-145); TOTAL CARBON DIOXIDE 27.4 MMOL/L (24-32); TOTAL PROTEIN 5.3 G/DL (6.4-8.2); eGFR 70 ML/MIN
[2019-08-19 04:24] LABS: HEMATOCRIT 18.5 % (42.0-52.0); HEMOGLOBIN 6.2 g/dl (14.0-17.9); WHITE BLOOD COUNT 30.5 X10'3 (4.5-11.0)
--- NOTE | 2019-08-19 04:30 | NUR ---
Called Dr Grey regarding patient converting to Afib, Increased WBC 30.5, HGB 6.2, HCT 18.5. New orders received. Will continue to monitor.
[2019-08-19] MEDS ORDERED: acetaminophen 325mg tablet PO ONE (04:35)
[2019-08-19] MEDS ORDERED: amiodarone 150mg/dext, iso-os 100 ML IV ONE (04:35)
[2019-08-19] MEDS ORDERED: diphenhydrAMINE 25mg capsule PO ONE (04:35)
[2019-08-19] MEDS: amiodarone/D5 360MG/200ML BAG 200 ML IV SCH ×4 (04:50→22:13)
[2019-08-19 04:54] LABS: TOTAL CELLS COUNTED 100
[2019-08-19 04:55] LABS: PLATELET ESTIMATE DECREASED
[2019-08-19 04:56] LABS: ANISOCYTOSIS 1+; POLYCHROMASIA FEW; STOMATOCYTES FEW
--- NOTE | 2019-08-19 06:15 | NUR ---
Patient in room ICU 2045. I have received report from QUINTIN Franklin and had the opportunity to ask questions and assume patient care.
--- NOTE | 2019-08-19 06:27 | NUR ---
Problems reprioritized. Patient report given, questions answered & plan of care reviewed with Parvin RIBEIRO.
[2019-08-19] MEDS: metoclopramide 5 mg/ml inj IV SCH ×4 (07:01→20:53)
[2019-08-19] MEDS: [UNRECOGNIZED DRUG - OTHER] PO SCH ×3 (08:00→18:00)
[2019-08-19] MEDS: metoprolol tartrate 12.5mg (1/2 tablet) PO SCH ×2 (08:00→20:52)
[2019-08-19] MEDS: lactose-reduced food (Ensure Enlive) - 237ml bottle PO SCH ×3 (08:00→18:00)
[2019-08-19] MEDS: furosemide 40mg/4ml inj IV SCH ×2 (08:00→20:52)
[2019-08-19] MEDS: pantoprazole 40mg Tablet.DR PO SCH (09:53)
[2019-08-19] MEDS: sennosides/docusate sodium tablet PO SCH ×2 (09:53→20:00)
[2019-08-19] MEDS: atorvastatin 10mg tablet PO SCH (09:53)
[2019-08-19] MEDS: baclofen 10mg tablet PO SCH ×3 (09:53→20:52)
[2019-08-19] MEDS: aspirin 81mg tablet.DR PO SCH (09:54)
[2019-08-19] MEDS ORDERED: cefepime 1GM in D5W 50mL 50 ML IV ONE (10:45)
[2019-08-19] MEDS ORDERED: vancomycin/NS 1 GM ADD-VANTAGE 250 ML IV ONE (10:45)
[2019-08-19] MEDS: methylPREDNISolone sod succ/PF 40mg inj. IV SCH ×3 (10:54→20:51)
[2019-08-19] MEDS ORDERED: furosemide 40mg/4ml inj IV ONE (11:50)
--- NOTE | 2019-08-19 12:15 | NUR ---
DCed Patients central line per MD orders. Patient tolerated well. Tip intact. Dressing CDI
[2019-08-19 12:18] LABS: BASOPHILS % (AUTO) 0.1 % (0-1); EOSINOPHILS # (AUTO) 0.1 X10'3 (0-0.9); EOSINOPHILS % (AUTO) 0.2 % (0-6); HEMATOCRIT 22.7 % (42.0-52.0); HEMOGLOBIN 7.5 g/dl (14.0-17.9); LYMPHOCYTES # (AUTO) 1.5 X10'3 (1.1-4.8); MEAN CORPUSCULAR HEMOGLOBIN 30.5 PG (27.0-31.0); MEAN CORPUSCULAR HGB CONC 33.1 g/dL (33.0-36.5); MEAN CORPUSCULAR VOLUME 92.1 FL (78-98); MEAN PLATELET VOLUME 8.2 FL (7.4-10.4); MONOCYTES # (AUTO) 1.9 X10'3 (0-0.9); MONOCYTES % (AUTO) 7.7 % (2-12); PLATELET COUNT 149 X10'3 (140-440); RED BLOOD COUNT 2.46 X10'6 (4.70-6.10); RED CELL DISTRIBUTION WIDTH 14.1 % (11.5-14.5); WHITE BLOOD COUNT 24.4 X10'3 (4.5-11.0)
[2019-08-19 12:39] LABS: D-DIMER 4.93 MG/L FEU (0-0.50); PARTIAL THROMBOPLASTIN TIME 31 SECONDS (22-32)
--- NOTE | 2019-08-19 12:55 | NUR ---
Initial: Pt admit w/ CAD s/p CABG and MVR repair currently SOB on high flow nasal cannula. Noted to have persistent nausea/vomiting past 2 days effecting already sub-optimal PO post-op. 0% PO past 2.5 days down from initial 25-50% avg meals. Ensure enlive TIDWM added per MD; pt drank 75% this AM after refusing ONS during RD initial visit. NCS diet order accidentally cancelled; RD unable to reach RN and left message for RN regarding advancing to regular diet if MD agreeable given poor PO hx post-op. Also to ensure pt receives meal trays. Pt seen by RD and declines further preferences at this time; reports N/V mostly impacting PO and is feeling better at this time. RD encouraged pt to ask for RD if further nutrition concerns. Pt previously educated that premier proteins from home can be brought in if preferences but declined at that time. LBM 08/16 receiving routine bowel care. Noted pt has vodka TIDWM ordered in EMR and pt has been refusing; RD left message for RN regarding if MD agreeable to cancel since not drinking. Will continue to monitor for additional protein needs post-op. Rec: 1. advance diet as medically indicated to regular; encourage PO 2. ensure enlive TIDWM per MD 3. consider cancelling vodka TIDWM given poor PO hx and pt refusing if MD agreeable 4. routine bowel care 5. weekly wts Addendum: 08/19/19 at [address] Amended: Links added.
[2019-08-19] MEDS: cefepime 1GM in D5W 50mL 50 ML IV SCH ×2 (16:31→23:37)
--- NOTE | 2019-08-19 18:21 | NUR ---
Problems reprioritized. Patient report given, questions answered & plan of care reviewed with QUINTIN Alvarez.
[2019-08-19 20:13] LABS: PLATELET COUNT 149 X10'3 (140-440)
[2019-08-19] MEDS: vancomycin/NS 1 GM ADD-VANTAGE 250 ML IV SCH (23:35)
[2019-08-20] VITALS (23 sets, daily range): BP systolic 112–152; BP diastolic 37–68
[2019-08-20] MEDS: methylPREDNISolone sod succ/PF 40mg inj. IV SCH ×4 (02:05→20:35)
[2019-08-20] MEDS: ipratropium/albuterol 3ml nebule NEB SCH ×6 (02:50→22:49)
[2019-08-20] MEDS: amiodarone/D5 360MG/200ML BAG 200 ML IV SCH (04:46)
[2019-08-20 05:04] LABS: HEMOGLOBIN 7.8 g/dl (14.0-17.9); NEUTROPHILS % (AUTO) 89.8 % (42-75)
[2019-08-20 05:07] LABS: BASOPHILS % (AUTO) 0.2 % (0-1); EOSINOPHILS % (AUTO) 0.1 % (0-6); LYMPHOCYTES # (AUTO) 0.7 X10'3 (1.1-4.8); LYMPHOCYTES % (AUTO) 3.2 % (21-51); MEAN CORPUSCULAR HEMOGLOBIN 31.1 PG (27.0-31.0); MEAN CORPUSCULAR VOLUME 91.5 FL (78-98); MEAN PLATELET VOLUME 7.8 FL (7.4-10.4); MONOCYTES # (AUTO) 1.5 X10'3 (0-0.9); MONOCYTES % (AUTO) 6.7 % (2-12); NEUTROPHILS # (AUTO) 19.9 X10'3 (1.8-7.7); PLATELET COUNT 214 X10'3 (140-440); RED BLOOD COUNT 2.52 X10'6 (4.70-6.10); RED CELL DISTRIBUTION WIDTH 14.2 % (11.5-14.5); WHITE BLOOD COUNT 22.1 X10'3 (4.5-11.0)
--- NOTE | 2019-08-20 05:12 | NUR ---
LAST EVENING PATIENT PULLED OUT #22 PIV BY ACCIDENT. A NEW @20 PIV WAS PLACED AT LEFT WRIST. MULTIPLE ATTEMPTS TO GET A SECOND PIV WERE UNSUCCESSFUL DUE TO RUNNING INTO VALVES. WILL PASS TO NEXT RN TO REQUEST FOR A POSSIBLE PICC PLACEMENT
[2019-08-20 05:20] LABS: ALBUMIN 2.6 G/DL (3.4-5.0); ANION GAP 8 (8-16); BLOOD UREA NITROGEN 29 MG/DL (7-18); BUN/CREATININE RATIO 26.9 (5.4-32.0); CALCIUM 7.9 MG/DL (8.5-10.1); CHLORIDE 101 MMOL/L (99-107); CREATININE 1.08 MG/DL (0.60-1.10); GLUCOSE 137 MG/DL (70-104); MAGNESIUM 2.5 MG/DL (1.5-2.4); PHOSPHORUS 2.8 MG/DL (2.3-4.5); POTASSIUM 3.6 MMOL/L (3.5-5.1); SODIUM 138 MMOL/L (135-145); eGFR 67 ML/MIN
[2019-08-20] MEDS: potassium Cl 20 mEq SR tablet PO PRN ×3 (05:32→09:34)
[2019-08-20 06:19] LABS: PLATELET ESTIMATE NORMAL; POLYCHROMASIA 1+; TOTAL CELLS COUNTED 100
[2019-08-20 06:20] LABS: TOXIC GRANULATION 1+
--- NOTE | 2019-08-20 06:30 | NUR ---
Patient in room ICU 2045. I have received report from QUINTIN Alvarez and had the opportunity to ask questions and assume patient care.
[2019-08-20] MEDS: metoclopramide 5 mg/ml inj IV SCH ×4 (07:00→20:43)
[2019-08-20] MEDS: furosemide 40mg/4ml inj IV SCH (07:44)
[2019-08-20] MEDS: cefepime 1GM in D5W 50mL 50 ML IV SCH ×3 (07:44→23:49)
[2019-08-20] MEDS: atorvastatin 10mg tablet PO SCH (07:44)
[2019-08-20] MEDS: aspirin 81mg tablet.DR PO SCH (07:45)
[2019-08-20] MEDS: pantoprazole 40mg Tablet.DR PO SCH (07:45)
[2019-08-20] MEDS: baclofen 10mg tablet PO SCH ×3 (07:45→20:35)
[2019-08-20] MEDS: metoprolol tartrate 12.5mg (1/2 tablet) PO SCH ×2 (07:45→20:35)
[2019-08-20] MEDS: [UNRECOGNIZED DRUG - OTHER] PO SCH ×3 (07:59→18:00)
[2019-08-20] MEDS: sennosides/docusate sodium tablet PO SCH ×2 (07:59→20:00)
[2019-08-20] MEDS: lactose-reduced food (Ensure Enlive) - 237ml bottle PO SCH ×4 (08:00→19:35)
--- NOTE | 2019-08-20 09:21 | NUR ---
Dr. Brian rounded on pt. Plan for pt to stay in ICU one more day. Ok to change diet to cardiac regular consistency. Dr. Grey ordered to change IV Amiodarone to PO. Pt to work with PT today.
[2019-08-20] MEDS: amiodarone 200mg tablet PO SCH ×2 (09:34→20:34)
--- NOTE | 2019-08-20 11:15 | NUR ---
PO Amiodarone given @ 0934. IV Amiodarone stopped at 1111 per NGUYỄN Cooper. Pt in SR, BP stable throughout the AM.
[2019-08-20] MEDS: vancomycin/NS 1 GM ADD-VANTAGE 250 ML IV SCH ×2 (11:34→22:49)
[2019-08-20] MEDS: sodium chloride 0.45% 1,000 ML IV SCH (19:30)
[2019-08-20] MEDS: lactobacillus rhamnosus 10,000 MMU CELLS/CAPSULE PO SCH (20:00)
[2019-08-20] MEDS: furosemide 20MG tablet PO SCH (20:34)
[2019-08-20] MEDS: lisinopril 5mg tablet PO SCH (20:35)
[2019-08-20] MEDS ORDERED: VANCOMYCIN LEVEL IV ONE (22:30)
[2019-08-21] VITALS (28 sets, daily range): BP systolic 108–152; BP diastolic 39–68
[2019-08-21] MEDS: methylPREDNISolone sod succ/PF 40mg inj. IV SCH ×3 (02:18→19:23)
[2019-08-21] MEDS: ipratropium/albuterol 3ml nebule NEB SCH ×6 (02:54→23:34)
[2019-08-21 05:32] LABS: EOSINOPHILS % (AUTO) 0 % (0-6); MONOCYTES # (AUTO) 1.9 X10'3 (0-0.9); MONOCYTES % (AUTO) 8.4 % (2-12)
[2019-08-21 05:35] LABS: BASOPHILS % (AUTO) 0.1 % (0-1); LYMPHOCYTES # (AUTO) 1.1 X10'3 (1.1-4.8); LYMPHOCYTES % (AUTO) 4.9 % (21-51); MEAN CORPUSCULAR HEMOGLOBIN 30.8 PG (27.0-31.0); MEAN CORPUSCULAR HGB CONC 33.7 g/dL (33.0-36.5); MEAN CORPUSCULAR VOLUME 91.3 FL (78-98); MEAN PLATELET VOLUME 7.6 FL (7.4-10.4); NEUTROPHILS # (AUTO) 19.4 X10'3 (1.8-7.7); NEUTROPHILS % (AUTO) 86.6 % (42-75); PLATELET COUNT 268 X10'3 (140-440); RED BLOOD COUNT 2.14 X10'6 (4.70-6.10); RED CELL DISTRIBUTION WIDTH 14.6 % (11.5-14.5); WHITE BLOOD COUNT 22.4 X10'3 (4.5-11.0)
[2019-08-21 05:49] LABS: ALBUMIN 2.3 G/DL (3.4-5.0); ANION GAP 6 (8-16); BLOOD UREA NITROGEN 31 MG/DL (7-18); BUN/CREATININE RATIO 31.3 (5.4-32.0); CALCIUM 7.7 MG/DL (8.5-10.1); CHLORIDE 103 MMOL/L (99-107); CREATININE 0.99 MG/DL (0.60-1.10); GLUCOSE 134 MG/DL (70-104); MAGNESIUM 2.3 MG/DL (1.5-2.4); PHOSPHORUS 2.4 MG/DL (2.3-4.5); POTASSIUM 3.8 MMOL/L (3.5-5.1); SODIUM 139 MMOL/L (135-145); TOTAL CARBON DIOXIDE 29.6 MMOL/L (24-32); eGFR 74 ML/MIN
[2019-08-21 05:58] LABS: HEMATOCRIT 19.5 % (42.0-52.0); HEMOGLOBIN 6.6 g/dl (14.0-17.9)
[2019-08-21 07:52] LABS: PLATELET ESTIMATE NORMAL; TOTAL CELLS COUNTED 100
[2019-08-21] MEDS: [UNRECOGNIZED DRUG - OTHER] PO SCH ×3 (08:00→17:18)
[2019-08-21] MEDS: lactose-reduced food (Ensure Enlive) - 237ml bottle PO SCH ×3 (08:00→17:18)
[2019-08-21] MEDS: potassium Cl 20 mEq SR tablet PO PRN (08:30)
[2019-08-21] MEDS: cefepime 1GM in D5W 50mL 50 ML IV SCH ×2 (08:30→16:31)
[2019-08-21] MEDS: furosemide 20MG tablet PO SCH ×2 (08:31→19:22)
[2019-08-21] MEDS: lactobacillus rhamnosus 10,000 MMU CELLS/CAPSULE PO SCH ×2 (08:31→19:22)
[2019-08-21] MEDS: amiodarone 200mg tablet PO SCH ×2 (08:31→19:22)
[2019-08-21] MEDS: metoprolol tartrate 12.5mg (1/2 tablet) PO SCH ×2 (08:31→19:22)
[2019-08-21] MEDS: atorvastatin 10mg tablet PO SCH (08:31)
[2019-08-21] MEDS: sennosides/docusate sodium tablet PO SCH ×2 (08:31→19:21)
[2019-08-21] MEDS: pantoprazole 40mg Tablet.DR PO SCH (08:31)
[2019-08-21] MEDS: baclofen 10mg tablet PO SCH ×3 (08:31→21:09)
[2019-08-21] MEDS: aspirin 81mg tablet.DR PO SCH (08:31)
[2019-08-21] MEDS: metoclopramide 5 mg/ml inj IV SCH ×4 (08:34→21:09)
[2019-08-21 09:56] LABS: BASOPHILS # (AUTO) 0.1 X10'3 (0-0.2); BASOPHILS % (AUTO) 0.4 % (0-1); EOSINOPHILS % (AUTO) 0 % (0-6); LYMPHOCYTES % (AUTO) 4.4 % (21-51); MEAN CORPUSCULAR HEMOGLOBIN 30.4 PG (27.0-31.0); MEAN CORPUSCULAR HGB CONC 33.2 g/dL (33.0-36.5); MEAN CORPUSCULAR VOLUME 91.6 FL (78-98); MEAN PLATELET VOLUME 7.5 FL (7.4-10.4); MONOCYTES # (AUTO) 1.1 X10'3 (0-0.9); NEUTROPHILS # (AUTO) 20.6 X10'3 (1.8-7.7); NEUTROPHILS % (AUTO) 90.2 % (42-75); PLATELET COUNT 296 X10'3 (140-440); RED BLOOD COUNT 2.31 X10'6 (4.70-6.10); RED CELL DISTRIBUTION WIDTH 14.6 % (11.5-14.5); WHITE BLOOD COUNT 22.8 X10'3 (4.5-11.0)
[2019-08-21 10:01] LABS: HEMATOCRIT 21.1 % (42.0-52.0)
[2019-08-21] MEDS: vancomycin/NS 1 GM ADD-VANTAGE 250 ML IV SCH ×2 (11:41→22:57)
--- NOTE | 2019-08-21 18:17 | NUR ---
Problems reprioritized. Patient report given, questions answered & plan of care reviewed with Mason RN.
--- NOTE | 2019-08-21 19:03 | NUR ---
Patient in room ICU 2045. I have received report from Antonio RIBEIRO and had the opportunity to ask questions and assume patient care.
[2019-08-21] MEDS: lisinopril 5mg tablet PO SCH (21:09)
[2019-08-22] VITALS (23 sets, daily range): BP systolic 109–154; BP diastolic 39–75
[2019-08-22] MEDS: cefepime 1GM in D5W 50mL 50 ML IV SCH ×3 (00:40→17:32)
[2019-08-22] MEDS: ipratropium/albuterol 3ml nebule NEB SCH ×6 (03:28→23:14)
[2019-08-22 04:34] LABS: BASOPHILS % (AUTO) 0.2 % (0-1); EOSINOPHILS % (AUTO) 0 % (0-6); HEMATOCRIT 26.7 % (42.0-52.0); HEMOGLOBIN 8.9 g/dl (14.0-17.9); LYMPHOCYTES # (AUTO) 1.5 X10'3 (1.1-4.8); LYMPHOCYTES % (AUTO) 6.4 % (21-51); MEAN CORPUSCULAR HEMOGLOBIN 29.9 PG (27.0-31.0); MEAN CORPUSCULAR HGB CONC 33.4 g/dL (33.0-36.5); MEAN CORPUSCULAR VOLUME 89.7 FL (78-98); MEAN PLATELET VOLUME 7.4 FL (7.4-10.4); MONOCYTES # (AUTO) 1.5 X10'3 (0-0.9); MONOCYTES % (AUTO) 6.4 % (2-12); NEUTROPHILS # (AUTO) 20.2 X10'3 (1.8-7.7); PLATELET COUNT 308 X10'3 (140-440); RED BLOOD COUNT 2.97 X10'6 (4.70-6.10); RED CELL DISTRIBUTION WIDTH 15.1 % (11.5-14.5); WHITE BLOOD COUNT 23.2 X10'3 (4.5-11.0)
[2019-08-22 04:45] LABS: ALBUMIN 2.8 G/DL (3.4-5.0); ANION GAP 7 (8-16); BLOOD UREA NITROGEN 29 MG/DL (7-18); BUN/CREATININE RATIO 27.1 (5.4-32.0); CALCIUM 8.3 MG/DL (8.5-10.1); CHLORIDE 104 MMOL/L (99-107); CREATININE 1.07 MG/DL (0.60-1.10); GLUCOSE 114 MG/DL (70-104); SODIUM 139 MMOL/L (135-145); eGFR 68 ML/MIN
[2019-08-22 05:04] LABS: MAGNESIUM 2.6 MG/DL (1.5-2.4)
[2019-08-22] MEDS: potassium Cl 20 mEq SR tablet PO PRN (05:04)
--- NOTE | 2019-08-22 06:19 | NUR ---
Problems reprioritized. Patient report given, questions answered & plan of care reviewed with Kenneth RIBEIRO.
[2019-08-22] MEDS: metoclopramide 5 mg/ml inj IV SCH ×4 (07:00→20:39)
[2019-08-22 07:05] LABS: PLATELET ESTIMATE NORMAL; TOTAL CELLS COUNTED 100
[2019-08-22 07:06] LABS: TOXIC GRANULATION 1+
[2019-08-22] MEDS: [UNRECOGNIZED DRUG - OTHER] PO SCH ×3 (08:00→18:00)
[2019-08-22] MEDS: methylPREDNISolone sod succ/PF 40mg inj. IV SCH ×2 (08:01→20:39)
[2019-08-22] MEDS: aspirin 81mg tablet.DR PO SCH (08:01)
[2019-08-22] MEDS: metoprolol tartrate 12.5mg (1/2 tablet) PO SCH ×2 (08:01→21:27)
[2019-08-22] MEDS: furosemide 20MG tablet PO SCH ×2 (08:01→21:27)
[2019-08-22] MEDS: atorvastatin 10mg tablet PO SCH (08:01)
[2019-08-22] MEDS: pantoprazole 40mg Tablet.DR PO SCH (08:01)
[2019-08-22] MEDS: lactobacillus rhamnosus 10,000 MMU CELLS/CAPSULE PO SCH ×2 (08:01→20:40)
[2019-08-22] MEDS: sennosides/docusate sodium tablet PO SCH ×2 (08:02→20:39)
[2019-08-22] MEDS: baclofen 10mg tablet PO SCH ×3 (08:02→20:40)
[2019-08-22] MEDS: amiodarone 200mg tablet PO SCH ×2 (08:02→20:40)
[2019-08-22] MEDS: lactose-reduced food (Ensure Enlive) - 237ml bottle PO SCH ×3 (08:03→18:41)
[2019-08-22] MEDS: vancomycin/NS 1 GM ADD-VANTAGE 250 ML IV SCH ×2 (13:25→22:24)
[2019-08-22] MEDS: sodium chloride 0.45% 1,000 ML IV SCH (13:42)
--- NOTE | 2019-08-22 20:11 | NUR ---
Problems reprioritized. Patient report given, questions answered & plan of care reviewed with Tanya RIBEIRO.
[2019-08-22] MEDS: lisinopril 5mg tablet PO SCH (21:28)
[2019-08-23] VITALS (9 sets, daily range): BP systolic 126–157; BP diastolic 44–78
[2019-08-23] MEDS: cefepime 1GM in D5W 50mL 50 ML IV SCH (00:18)
[2019-08-23] MEDS: ipratropium/albuterol 3ml nebule NEB SCH ×2 (03:26→08:07)
[2019-08-23 05:39] LABS: BASOPHILS % (AUTO) 0.1 % (0-1); EOSINOPHILS % (AUTO) 0.1 % (0-6); HEMATOCRIT 28.7 % (42.0-52.0); HEMOGLOBIN 9.7 g/dl (14.0-17.9); LYMPHOCYTES # (AUTO) 1.3 X10'3 (1.1-4.8); LYMPHOCYTES % (AUTO) 5.3 % (21-51); MEAN CORPUSCULAR HEMOGLOBIN 30.5 PG (27.0-31.0); MEAN CORPUSCULAR HGB CONC 33.8 g/dL (33.0-36.5); MEAN CORPUSCULAR VOLUME 90.2 FL (78-98); MEAN PLATELET VOLUME 7.1 FL (7.4-10.4); MONOCYTES # (AUTO) 1.1 X10'3 (0-0.9); MONOCYTES % (AUTO) 4.7 % (2-12); NEUTROPHILS # (AUTO) 21.5 X10'3 (1.8-7.7); NEUTROPHILS % (AUTO) 89.8 % (42-75); PLATELET COUNT 331 X10'3 (140-440); RED BLOOD COUNT 3.18 X10'6 (4.70-6.10); RED CELL DISTRIBUTION WIDTH 14.8 % (11.5-14.5); WHITE BLOOD COUNT 23.9 X10'3 (4.5-11.0)
[2019-08-23 06:02] LABS: ALBUMIN 2.9 G/DL (3.4-5.0); ANION GAP 4 (8-16); BLOOD UREA NITROGEN 26 MG/DL (7-18); BUN/CREATININE RATIO 22.8 (5.4-32.0); CALCIUM 8.4 MG/DL (8.5-10.1); CHLORIDE 102 MMOL/L (99-107); CREATININE 1.14 MG/DL (0.60-1.10); GLUCOSE 124 MG/DL (70-104); POTASSIUM 4.7 MMOL/L (3.5-5.1); SODIUM 138 MMOL/L (135-145); TOTAL CARBON DIOXIDE 31.6 MMOL/L (24-32); eGFR 63 ML/MIN
--- NOTE | 2019-08-23 06:20 | NUR ---
Problems reprioritized. Patient report given, questions answered & plan of care reviewed with QUINTIN Brito.
[2019-08-23 06:58] LABS: NUCLEATED RED BLOOD CELLS 1 /100WBC (0-0); TOTAL CELLS COUNTED 100
[2019-08-23 06:59] LABS: PLATELET ESTIMATE NORMAL; POLYCHROMASIA 1+; TOXIC GRANULATION 3+
[2019-08-23] MEDS: metoclopramide 5 mg/ml inj IV SCH (07:00)
[2019-08-23] MEDS: furosemide 20MG tablet PO SCH (07:30)
[2019-08-23] MEDS: pantoprazole 40mg Tablet.DR PO SCH (07:30)
[2019-08-23] MEDS: methylPREDNISolone sod succ/PF 40mg inj. IV SCH (07:30)
[2019-08-23] MEDS: baclofen 10mg tablet PO SCH (07:31)
[2019-08-23] MEDS: metoprolol tartrate 12.5mg (1/2 tablet) PO SCH (07:31)
[2019-08-23] MEDS: amiodarone 200mg tablet PO SCH (07:31)
[2019-08-23] MEDS: atorvastatin 10mg tablet PO SCH (07:31)
[2019-08-23] MEDS: aspirin 81mg tablet.DR PO SCH (07:32)
[2019-08-23] MEDS: lactobacillus rhamnosus 10,000 MMU CELLS/CAPSULE PO SCH (07:32)
[2019-08-23] MEDS: sennosides/docusate sodium tablet PO SCH (07:35)
[2019-08-23] MEDS: [UNRECOGNIZED DRUG - OTHER] PO SCH (07:35)
[2019-08-23] MEDS: lactose-reduced food (Ensure Enlive) - 237ml bottle PO SCH (07:36)
[2019-08-23] MEDS ORDERED: METO25TA6 PO (09:17)
[2019-08-23] MEDS ORDERED: LISI-642 PO (09:17)
[2019-08-23] MEDS ORDERED: AMIO200T61 PO (09:17)
[2019-08-23] MEDS ORDERED: SENN-166 PO (09:17)
[2019-08-23] MEDS ORDERED: HYDR-4353 PO (09:17)
[2019-08-23] MEDS ORDERED: ASPI-1071 PO (09:17)
[2019-08-23] MEDS ORDERED: FURO20TA4 PO (09:17)
[2019-08-23] MEDS ORDERED: POTA10TA36 PO (09:29)
[2019-08-23] MEDS ORDERED: PRED5TAB PO (10:30)
[2019-08-24] MEDS ORDERED: furosemide 20MG tablet PO SCH (08:00)
== END 2019-08-23 11:00 | disposition home or self-care (01) | DRG 219 ==
LOC: PAS IN 05:29 → EDSTATUS 08:30 → CICU 2S 10:02 → ICU 2S 08-17 17:20
PROVIDERS: ADMIT Thoracic Surgery (Cardiothoracic Vascular Surgery); ATTEND Thoracic Surgery (Cardiothoracic Vascular Surgery)
PROC: 02UG08Z Supplement Mitral Valve with Zooplastic Tissue, Open Approach (ICD-10-PCS; 2019-08-14)
PROC: 06BP4ZZ Excision of Right Saphenous Vein, Percutaneous Endoscopic Approach (ICD-10-PCS; 2019-08-14)
PROC: 02NN0ZZ Release Pericardium, Open Approach (ICD-10-PCS; 2019-08-14)
PROC: 02580ZZ Destruction of Conduction Mechanism, Open Approach (ICD-10-PCS; 2019-08-14)
PROC: 5A1221Z Performance of Cardiac Output, Continuous (ICD-10-PCS; 2019-08-14)
PROC: B24BZZ4 Ultrasonography of Heart with Aorta, Transesophageal (ICD-10-PCS; 2019-08-14)
PROC: 30233M1 Transfusion of Nonautologous Plasma Cryoprecipitate into Peripheral Vein, Percutaneous Approach (ICD-10-PCS; 2019-08-14)
PROC: 30233N1 Transfusion of Nonautologous Red Blood Cells into Peripheral Vein, Percutaneous Approach (ICD-10-PCS; 2019-08-14)
PROC: 30233R1 Transfusion of Nonautologous Platelets into Peripheral Vein, Percutaneous Approach (ICD-10-PCS; 2019-08-14)
PROC: 02HQ32Z Insertion of Monitoring Device into Right Pulmonary Artery, Percutaneous Approach (ICD-10-PCS; 2019-08-14)
PROC: 4A133B3 Monitoring of Arterial Pressure, Pulmonary, Percutaneous Approach (ICD-10-PCS; 2019-08-14)
PROC: 4A1239Z Monitoring of Cardiac Output, Percutaneous Approach (ICD-10-PCS; 2019-08-14)
PROC: 02HV33Z Insertion of Infusion Device into Superior Vena Cava, Percutaneous Approach (ICD-10-PCS; 2019-08-14)
PROC: B548ZZA Ultrasonography of Superior Vena Cava, Guidance (ICD-10-PCS; 2019-08-14)
PROC: 02100Z9 Bypass Coronary Artery, One Artery from Left Internal Mammary, Open Approach (ICD-10-PCS; principal; 2019-08-14 07:31)
PROC: 5A09357 Assistance with Respiratory Ventilation, Less than 24 Consecutive Hours, Continuous Positive Airway Pressure (ICD-10-PCS; 2019-08-16)
PROC: 5A09357 Assistance with Respiratory Ventilation, Less than 24 Consecutive Hours, Continuous Positive Airway Pressure (ICD-10-PCS; 2019-08-18)
DX: I34.0 Nonrheumatic mitral (valve) insufficiency (principal); I50.33 Acute on chronic diastolic (congestive) heart failure; I31.0 Chronic adhesive pericarditis; D62 Acute posthemorrhagic anemia; D72.829 Elevated white blood cell count, unspecified; I25.10 Atherosclerotic heart disease of native coronary artery without angina pectoris; E78.5 Hyperlipidemia, unspecified; F17.210 Nicotine dependence, cigarettes, uncomplicated; I11.0 Hypertensive heart disease with heart failure; I48.0 Paroxysmal atrial fibrillation; M19.90 Unspecified osteoarthritis, unspecified site; R09.02 Hypoxemia; I25.2 Old myocardial infarction
CPT/HCPCS: 0232T; 93308; 93312; 93325; Z7506; Z7508; 36415; 36430; 36600; 71045; 71046; 71250; 74176; 80048; 80053; 80202; 81001; 82330; 82435; 82803; 82947; 82948; 83036; 83605; 83735; 84100; 84132; 84145; 84295; 85018; 85025; 85027; 85347; 85379; 85384; 85610; 85730; 86885; 86900; 86901; 86920; 87040; 87081; 93005; 93880; 93971; 94002; 94640; 94660; 94667; 94668; 94760; 97110; 97116; 97162; 97530; A4618; A6258; A6402; A6449; A7000; A7048; C1713; C1751; C2618; C9113; G0378; J0171; J0690; J0692; J1265; J1644; J1815; J1940; J2001; J2060; J2150; J2250; J2270; J2370; J2405; J2440; J2597; J2704; J2720; J2765; J2920; J2930; J3010; J3370; J3475; J3480; J3490; J7030; J7040; J7050; J7120; P9012; P9016; P9035; P9045; P9047; Q0163

== ENCOUNTER 2019-08-26 11:55 | Outpatient (CLI) | payer OTHER, MEDICARE ==
[~2019-08-26 11:55] MED LIST changes: +AMIO200T61 PO; +ASPI-1071 PO; +FURO20TA4 PO; +HYDR-4353 PO; +LISI-642 PO; +METO25TA6 PO; +POTA10TA36 PO; +PRED5TAB PO; +SENN-166 PO; -ceFAZolin 1000mg inj ONE; -ringers solution, lacted 1,000 ML IV SCH
[2019-08-26 12:40] LABS: BASOPHILS # (AUTO) 0.2 X10'3 (0-0.2); BASOPHILS % (AUTO) 0.7 % (0-1); EOSINOPHILS # (AUTO) 0.2 X10'3 (0-0.9); EOSINOPHILS % (AUTO) 0.6 % (0-6); HEMATOCRIT 29.8 % (42.0-52.0); HEMOGLOBIN 9.9 g/dl (14.0-17.9); LYMPHOCYTES # (AUTO) 2.2 X10'3 (1.1-4.8); LYMPHOCYTES % (AUTO) 8.7 % (21-51); MEAN CORPUSCULAR HEMOGLOBIN 30.1 PG (27.0-31.0); MEAN CORPUSCULAR HGB CONC 33.1 g/dL (33.0-36.5); MEAN CORPUSCULAR VOLUME 90.9 FL (78-98); MEAN PLATELET VOLUME 7.1 FL (7.4-10.4); MONOCYTES # (AUTO) 2.1 X10'3 (0-0.9); MONOCYTES % (AUTO) 8.1 % (2-12); NEUTROPHILS # (AUTO) 21.1 X10'3 (1.8-7.7); NEUTROPHILS % (AUTO) 81.9 % (42-75); PLATELET COUNT 269 X10'3 (140-440); RED BLOOD COUNT 3.27 X10'6 (4.70-6.10); RED CELL DISTRIBUTION WIDTH 14.8 % (11.5-14.5)
[2019-08-26 12:56] LABS: WHITE BLOOD COUNT 25.7 X10'3 (4.5-11.0)
[2019-08-26 13:05] LABS: PLATELET ESTIMATE NORMAL; TOTAL CELLS COUNTED 100
[2019-08-26 13:06] LABS: TOXIC GRANULATION 1+
== END 2019-08-26 23:59 | disposition home or self-care (01) ==
LOC: LAB 11:55
PROVIDERS: ATTEND Thoracic Surgery (Cardiothoracic Vascular Surgery)
DX: J18.9 Pneumonia, unspecified organism (principal)
CPT/HCPCS: 36415; 85025

== ENCOUNTER 2019-09-03 10:10 | Outpatient (CLI) | payer OTHER, MEDICARE ==
[2019-09-03 11:13] LABS: BASOPHILS # (AUTO) 0.1 X10'3 (0-0.2); BASOPHILS % (AUTO) 0.7 % (0-1); EOSINOPHILS # (AUTO) 0.2 X10'3 (0-0.9); EOSINOPHILS % (AUTO) 1.1 % (0-6); HEMATOCRIT 31.2 % (42.0-52.0); HEMOGLOBIN 10.2 g/dl (14.0-17.9); LYMPHOCYTES # (AUTO) 1.5 X10'3 (1.1-4.8); LYMPHOCYTES % (AUTO) 9.5 % (21-51); MEAN CORPUSCULAR HGB CONC 32.6 g/dL (33.0-36.5); MEAN PLATELET VOLUME 6.5 FL (7.4-10.4); MONOCYTES # (AUTO) 1.1 X10'3 (0-0.9); MONOCYTES % (AUTO) 6.7 % (2-12); NEUTROPHILS # (AUTO) 13.1 X10'3 (1.8-7.7); PLATELET COUNT 265 X10'3 (140-440); RED BLOOD COUNT 3.39 X10'6 (4.70-6.10); RED CELL DISTRIBUTION WIDTH 14.6 % (11.5-14.5); WHITE BLOOD COUNT 15.9 X10'3 (4.5-11.0)
== END 2019-09-03 23:59 | disposition home or self-care (01) ==
LOC: LAB 10:10
PROVIDERS: ATTEND Thoracic Surgery (Cardiothoracic Vascular Surgery)
DX: D72.829 Elevated white blood cell count, unspecified (principal)
CPT/HCPCS: 36415; 85025

== ENCOUNTER 2019-09-25 13:08 | Outpatient (CLI) | payer BC, MEDICARE | END 2019-09-25 23:59 | disposition home or self-care (01) | LOC: LAB 13:08 | PROVIDERS: ATTEND Family Medicine | DX: R35.0 Frequency of micturition (principal) | CPT/HCPCS: 36415; 84153 ==

== ENCOUNTER → 2020-01-10 | Outpatient (CLI) | payer BC, MEDICARE ==
[~2020-01-10] MED LIST changes: +PANT20TA18 PO; -PANT20TA3 PO
== END | disposition home or self-care (01) ==
LOC: CARD DIAG 13:39
PROVIDERS: ATTEND Physician Assistant
DX: I08.8 Other rheumatic multiple valve diseases (principal); I25.10 Atherosclerotic heart disease of native coronary artery without angina pectoris; R03.0 Elevated blood-pressure reading, without diagnosis of hypertension
CPT/HCPCS: 93306

== ENCOUNTER 2020-06-19 09:42 | Outpatient (CLI) | payer BC, MEDICARE ==
[~2020-06-19 09:42] MED LIST changes: +LOP25T PO; -METO25TA6 PO
[2020-06-19 10:24] LABS: BASOPHILS # (AUTO) 0.1 X10'3 (0-0.2); BASOPHILS % (AUTO) 1.1 % (0-1); EOSINOPHILS # (AUTO) 0.2 X10'3 (0-0.9); HEMATOCRIT 36.2 % (42.0-52.0); HEMOGLOBIN 12.3 g/dl (14.0-17.9); LYMPHOCYTES # (AUTO) 1.6 X10'3 (1.1-4.8); LYMPHOCYTES % (AUTO) 17.4 % (21-51); MEAN CORPUSCULAR HEMOGLOBIN 30.1 PG (27.0-31.0); MEAN CORPUSCULAR HGB CONC 33.9 g/dL (33.0-36.5); MEAN CORPUSCULAR VOLUME 88.7 FL (78-98); MEAN PLATELET VOLUME 6.3 FL (7.4-10.4); MONOCYTES # (AUTO) 0.9 X10'3 (0-0.9); MONOCYTES % (AUTO) 9.7 % (2-12); NEUTROPHILS # (AUTO) 6.2 X10'3 (1.8-7.7); NEUTROPHILS % (AUTO) 69.8 % (42-75); PLATELET COUNT 278 X10'3 (140-440); RED BLOOD COUNT 4.09 X10'6 (4.70-6.10); RED CELL DISTRIBUTION WIDTH 14.8 % (11.5-14.5); WHITE BLOOD COUNT 8.9 X10'3 (4.5-11.0)
[2020-06-19 10:24] LABS: CLARITY,URINE CLEAR (Clear); COLOR,URINE STRAW (Yellow); GLUCOSE, URINE NEGATIVE (Neg); KETONES,URINE NEGATIVE (Neg); LEUKOCYTE ESTERASE ,URINE SMALL (Neg); NITRITES, URINE NEGATIVE (Neg); OCCULT BLOOD,URINE TRACE-INTACT (Neg); PH,URINE 5.5 (4.8-8.0); PROTEIN,URINE NEGATIVE (Neg); UROBILINOGEN,URINE 0.2 E.U/dL (0.2-1.0)
[2020-06-19 10:25] LABS: UA COLLECTION TYPE CLN CATCH MIDSTREAM
[2020-06-19 10:34] LABS: BACTERIA,URINE NONE SEEN /HPF (Neg); MUCUS STRANDS NONE SEEN /LPF (Neg); RBC,URINE 0-2 /HPF (0-2); SQUAMOUS EPITHELIAL CELL,UR NONE SEEN /LPF (FEW); WBC,URINE 0-4 /HPF (0-4)
[2020-06-19 13:17] LABS: ALANINE AMINOTRANSFERASE 24 U/L (12-78); ALBUMIN 3.9 G/DL (3.4-5.0); ALBUMIN/GLOBULIN RATIO 1.3 (1.1-1.5); ALKALINE PHOSPHATASE 82 IU/L (46-116); ANION GAP 9 (8-16); ASPARTATE AMINO TRANSFERASE 28 U/L (10-37); BILIRUBIN,TOTAL 0.7 MG/DL (0.1-1.0); BLOOD UREA NITROGEN 18 MG/DL (7-18); BUN/CREATININE RATIO 19.6 (5.4-32.0); CALCIUM 9.1 MG/DL (8.5-10.1); CHLORIDE 98 MMOL/L (99-107); CHOL/HDL RATIO 1.8 (0.00-4.99); CHOLESTEROL 107 MG/DL (0-200); CREATININE 0.92 MG/DL (0.60-1.10); GLUCOSE 90 MG/DL (70-104); HDL CHOLESTEROL 60 MG/DL (35-60); LDL CHOLESTEROL 44 MG/DL (50-100); POTASSIUM 4.8 MMOL/L (3.5-5.1); SODIUM 132 MMOL/L (135-145); TOTAL CARBON DIOXIDE 24.7 MMOL/L (24-32); TOTAL PROTEIN 6.8 G/DL (6.4-8.2); eGFR 81 ML/MIN
[2020-06-19 13:42] LABS: TRIGLYCERIDES < 15 MG/DL (20-135)
== END 2020-06-19 23:59 | disposition home or self-care (01) ==
LOC: LAB 09:42
PROVIDERS: ATTEND Family Medicine
DX: I25.118 Atherosclerotic heart disease of native coronary artery with other forms of angina pectoris (principal); I10 Essential (primary) hypertension; R39.9 Unspecified symptoms and signs involving the genitourinary system; I30.9 Acute pericarditis, unspecified; I38 Endocarditis, valve unspecified; E07.9 Disorder of thyroid, unspecified; R73.03 Prediabetes; Z72.0 Tobacco use
CPT/HCPCS: 36415; 80053; 80061; 81001; 84439; 84443; 85025; 87088

== ENCOUNTER 2021-06-15 11:25 | Emergency (ER) | payer MEDICARE ==
[~2021-06-15] VITALS: Ht 177.8 cm; Wt 59.0 kg
[~2021-06-15 11:25] MED LIST changes: -POTA10TA36 PO; +POTA10TA37 PO
--- NOTE | 2021-06-15 11:38 | NUR ---
BLOOD GLUCOSE TAKEN @ 1136 BGL LEVEL 89
[2021-06-15 11:47] LABS: BASOPHILS # (AUTO) 0.1 X10'3 (0-0.2); BASOPHILS % (AUTO) 1.3 % (0-1); EOSINOPHILS # (AUTO) 0.1 X10'3 (0-0.9); EOSINOPHILS % (AUTO) 1.1 % (0-6); HEMATOCRIT 35.7 % (42.0-52.0); HEMOGLOBIN 12.3 g/dl (14.0-17.9); LYMPHOCYTES # (AUTO) 0.9 X10'3 (1.1-4.8); LYMPHOCYTES % (AUTO) 9.5 % (21-51); MEAN CORPUSCULAR HEMOGLOBIN 30.2 PG (27.0-31.0); MEAN CORPUSCULAR HGB CONC 34.6 g/dL (33.0-36.5); MEAN CORPUSCULAR VOLUME 87.4 FL (78-98); MEAN PLATELET VOLUME 5.9 FL (7.4-10.4); MONOCYTES # (AUTO) 0.8 X10'3 (0-0.9); MONOCYTES % (AUTO) 7.9 % (2-12); NEUTROPHILS # (AUTO) 7.7 X10'3 (1.8-7.7); NEUTROPHILS % (AUTO) 80.2 % (42-75); PLATELET COUNT 343 X10'3 (140-440); RED BLOOD COUNT 4.08 X10'6 (4.70-6.10); RED CELL DISTRIBUTION WIDTH 13.2 % (11.5-14.5); WHITE BLOOD COUNT 9.6 X10'3 (4.5-11.0)
[2021-06-15 12:12] LABS: ALANINE AMINOTRANSFERASE 30 U/L (12-78); ALBUMIN/GLOBULIN RATIO 1.3 (1.1-1.5); ALKALINE PHOSPHATASE 79 IU/L (46-116); ANION GAP 10 (8-16); ASPARTATE AMINO TRANSFERASE 45 U/L (10-37); BILIRUBIN,TOTAL 0.4 MG/DL (0.1-1.0); BLOOD UREA NITROGEN 13 MG/DL (7-18); BUN/CREATININE RATIO 12.7 (5.4-32.0); CHLORIDE 90 MMOL/L (99-107); CREATININE 1.02 MG/DL (0.60-1.10); POTASSIUM 5.4 MMOL/L (3.5-5.1); SODIUM 125 MMOL/L (135-145); TOTAL CARBON DIOXIDE 24.6 MMOL/L (24-32); TOTAL PROTEIN 7.1 G/DL (6.4-8.2); eGFR 72 ML/MIN
[2021-06-15 12:20] LABS: CALCIUM 8.7 MG/DL (8.5-10.1); GLUCOSE 97 MG/DL (70-104)
[2021-06-15] MEDS ORDERED: ringers solution, lacted 1,000 ML IV ONE (12:55)
[2021-06-15] MEDS ORDERED: diphenhydrAMINE 50 mg/ml inj IV STA (13:23)
[2021-06-15] MEDS ORDERED: DIP0.05CR TOP (13:52)
[2021-06-15] MEDS ORDERED: DOXE50CA4 PO (13:52)
[2021-06-15] MEDS ORDERED: PRED10TA23 PO ×2 (13:52)
[2021-06-15] MEDS ORDERED: ACYC200C PO (13:52)
[2021-06-15] MEDS ORDERED: acyclovir 200 MG capsule PO SCH (13:55)
[2021-06-15] MEDS ORDERED: acyclovir 200 MG capsule PO ONE (13:55)
--- NOTE | 2021-06-15 14:16 | NUR ---
IV DC @ 1413 NO REDNESS OR SWELLING. CATH INTACT
[2021-06-15 14:19] VITALS: BP 167/73
== END 2021-06-15 14:21 | disposition home or self-care (01) ==
LOC: ER 11:26
DX: L42 Pityriasis rosea (principal); R21 Rash and other nonspecific skin eruption; R53.1 Weakness; I25.10 Atherosclerotic heart disease of native coronary artery without angina pectoris; Z98.890 Other specified postprocedural states; Z72.89 Other problems related to lifestyle; Z79.82 Long term (current) use of aspirin; Z79.899 Other long term (current) drug therapy
CPT/HCPCS: 36415; 71045; 80053; 82948; 83880; 84484; 85025; 93005; 96361; 96374; 99285; J1200; J7120

== ENCOUNTER 2021-06-18 14:13 | Inpatient (IN) | payer MEDICARE ==
[~2021-06-18] VITALS: Ht 177.8 cm; Wt 59.0 kg
[~2021-06-18 14:13] MED LIST changes: +ACYC200C PO; +DIP0.05CR TOP; +DOXE50CA4 PO; +PRED10TA23 PO
[2021-06-18 14:46] LABS: BASOPHILS % (AUTO) 0.1 % (0-1); EOSINOPHILS % (AUTO) 0 % (0-6); HEMATOCRIT 35.7 % (42.0-52.0); HEMOGLOBIN 12.2 g/dl (14.0-17.9); LYMPHOCYTES # (AUTO) 0.4 X10'3 (1.1-4.8); LYMPHOCYTES % (AUTO) 2.3 % (21-51); MEAN CORPUSCULAR HEMOGLOBIN 29.9 PG (27.0-31.0); MEAN CORPUSCULAR HGB CONC 34.2 g/dL (33.0-36.5); MEAN CORPUSCULAR VOLUME 87.3 FL (78-98); MEAN PLATELET VOLUME 6.5 FL (7.4-10.4); MONOCYTES # (AUTO) 0.7 X10'3 (0-0.9); MONOCYTES % (AUTO) 3.8 % (2-12); NEUTROPHILS # (AUTO) 17.8 X10'3 (1.8-7.7); NEUTROPHILS % (AUTO) 93.8 % (42-75); PLATELET COUNT 274 X10'3 (140-440); RED BLOOD COUNT 4.08 X10'6 (4.70-6.10); RED CELL DISTRIBUTION WIDTH 13.2 % (11.5-14.5); WHITE BLOOD COUNT 18.9 X10'3 (4.5-11.0)
[2021-06-18 15:01] LABS: ALANINE AMINOTRANSFERASE 24 U/L (12-78); ALBUMIN/GLOBULIN RATIO 1.3 (1.1-1.5); ALKALINE PHOSPHATASE 82 IU/L (46-116); ANION GAP 10 (8-16); ASPARTATE AMINO TRANSFERASE 42 U/L (10-37); BILIRUBIN,TOTAL 0.7 MG/DL (0.1-1.0); BLOOD UREA NITROGEN 19 MG/DL (7-18); BUN/CREATININE RATIO 14.8 (5.4-32.0); CALCIUM 8.9 MG/DL (8.5-10.1); CHLORIDE 92 MMOL/L (99-107); CREATININE 1.28 MG/DL (0.60-1.10); GLUCOSE 92 MG/DL (70-104); POTASSIUM 4.9 MMOL/L (3.5-5.1); SODIUM 125 MMOL/L (135-145); TOTAL CARBON DIOXIDE 23.1 MMOL/L (24-32); TOTAL PROTEIN 7.1 G/DL (6.4-8.2); eGFR 55 ML/MIN
[2021-06-18] MEDS ORDERED: famotidine/PF 10 mg/ml inj IV ONE (15:10)
[2021-06-18] MEDS ORDERED: ondansetron/PF 4mg/2ml inj IV ONE (15:10)
[2021-06-18] MEDS ORDERED: pantoprazole 40MG/NS 100ML BAG 100 ML IV ONE (15:10)
[2021-06-18] MEDS ORDERED: normal saline 1000ml 1,000 ML IV ONE (15:20)
[2021-06-18 15:29] LABS: LIPASE 9471 U/L (73-393)
[2021-06-18] MEDS ORDERED: morphine 4 MG/ML inj SYRINge IV ONE (15:45)
[2021-06-18 15:52] LABS: MAGNESIUM 1.5 MG/DL (1.5-2.4)
--- NOTE | 2021-06-18 16:20 | NUR ---
ULTRASOUND BEING PERFORMED AND PT LYING FLAT, PT 02 SAT 86%, 4L/MIN NC APPLIED 02 SAT 94% PT WAS GIVEN MORPINE 4MG PRIOR TO US.
[2021-06-18] MEDS ORDERED: HYDROmorphone inj. 0.5 MG/0.5 ML DISP.SYRIN IV ONE (17:05)
--- NOTE | 2021-06-18 17:16 | NUR ---
PT BACK FROM CT SCAN. 02 SAT 82% RA. 4L/MIN NC APPLIED 02 SAT 96%. INFORMED DR. CRUZ.
[2021-06-18] MEDS ORDERED: piperacillin/tazo 4.5gm/100ml 100 ML IV ONE (17:55)
[2021-06-18] MEDS ORDERED: magnesium 4gm in 100ml NS 100 ML IV PRN (21:40)
[2021-06-18] MEDS ORDERED: ondansetron/PF 4mg/2ml inj IV PRN (21:40)
[2021-06-18] MEDS ORDERED: magnesium 2GM in 50ml NS 50 ML IV PRN (21:40)
[2021-06-18] MEDS ORDERED: PERFLUTREN PROTEIN-A MICROSPHR (Optison) 0.22 MG/ML 3ML VIAL IV PRN (21:40)
[2021-06-18] MEDS: normal saline 1000ml 1,000 ML IV SCH (21:40)
[2021-06-18] MEDS ORDERED: potassium CL 10mEq/100ml bag 100 ML IV PRN (21:40)
[2021-06-18] MEDS ORDERED: CADD PCA waste documentation MC PRN (21:55)
[2021-06-18] MEDS ORDERED: naloxone 0.4 mg/ml inj IV PRN (21:55)
[2021-06-18] MEDS ORDERED: morphine/NS 1 mg/ml 50ml CADD 50 ML IV SCH (21:55)
[2021-06-18 22:30] VITALS: BP 128/70
[2021-06-18] MEDS: morphine/NS 1 mg/ml 50ml CADD 50 ML IV SCH (23:25)
[2021-06-19] MEDS: morphine/NS 1 mg/ml 50ml CADD 50 ML IV SCH ×4 (01:00→07:00)
[2021-06-19 02:00] VITALS: BP 110/70
[2021-06-19] MEDS: acyclovir 200 MG capsule PO SCH ×5 (05:37→21:56)
[2021-06-19 06:00] VITALS: BP 117/76
--- NOTE | 2021-06-19 06:15 | NUR ---
Problems reprioritized. Patient report given, questions answered & plan of care reviewed with QUINTIN Jung.
[2021-06-19 07:45] LABS: BASOPHILS % (AUTO) 0.2 % (0-1); EOSINOPHILS % (AUTO) 0.2 % (0-6); HEMOGLOBIN 10.9 g/dl (14.0-17.9); LYMPHOCYTES % (AUTO) 5.7 % (21-51); MEAN CORPUSCULAR HEMOGLOBIN 30.2 PG (27.0-31.0); MEAN PLATELET VOLUME 6.6 FL (7.4-10.4); MONOCYTES # (AUTO) 1.2 X10'3 (0-0.9); MONOCYTES % (AUTO) 6.7 % (2-12); NEUTROPHILS # (AUTO) 15.7 X10'3 (1.8-7.7); NEUTROPHILS % (AUTO) 87.2 % (42-75); PLATELET COUNT 216 X10'3 (140-440); RED BLOOD COUNT 3.59 X10'6 (4.70-6.10); RED CELL DISTRIBUTION WIDTH 13.3 % (11.5-14.5); WHITE BLOOD COUNT 17.9 X10'3 (4.5-11.0)
[2021-06-19] MEDS: K and/or MAG REPLACEMENT MC SCH ×2 (08:00→19:28)
[2021-06-19] MEDS ORDERED: methylPREDNISolone sod succ/PF 40mg inj. IV SCH (08:00)
[2021-06-19] MEDS ORDERED: betamet diprop/prop gly 0.05% cream 15gm TP SCH (08:00)
[2021-06-19 08:06] LABS: ALANINE AMINOTRANSFERASE 19 U/L (12-78); ALBUMIN/GLOBULIN RATIO 1.1 (1.1-1.5); ALKALINE PHOSPHATASE 63 IU/L (46-116); ANION GAP 13 (8-16); ASPARTATE AMINO TRANSFERASE 36 U/L (10-37); BILIRUBIN,TOTAL 0.6 MG/DL (0.1-1.0); BLOOD UREA NITROGEN 24 MG/DL (7-18); BUN/CREATININE RATIO 15.4 (5.4-32.0); CALCIUM 8.2 MG/DL (8.5-10.1); CHLORIDE 93 MMOL/L (99-107); CREATININE 1.56 MG/DL (0.60-1.10); GLUCOSE 77 MG/DL (70-104); POTASSIUM 4.5 MMOL/L (3.5-5.1); SODIUM 127 MMOL/L (135-145); TOTAL CARBON DIOXIDE 21.5 MMOL/L (24-32); TOTAL PROTEIN 5.8 G/DL (6.4-8.2); eGFR 44 ML/MIN
[2021-06-19] MEDS: metoprolol tartrate 12.5mg (1/2 tablet) PO SCH ×2 (08:27→20:35)
[2021-06-19] MEDS: apixaban 5mg tablet PO SCH ×2 (08:27→19:15)
[2021-06-19 08:28] LABS: MAGNESIUM 1.6 MG/DL (1.5-2.4)
[2021-06-19] MEDS: gabapentin 100mg capsule PO SCH ×3 (08:28→20:34)
[2021-06-19] MEDS: atorvastatin 20mg tablet PO SCH (08:28)
[2021-06-19 08:34] LABS: LIPASE 2894 U/L (73-393)
[2021-06-19] MEDS ORDERED: pneumococcal 23-VAL P-sac vacc 25 mcg/0.5ml vial IMVAC ONE (10:00)
--- NOTE | 2021-06-19 10:03 | NUR ---
Malnutrition consult: Pt reports wt loss with decreased appetite per malnutrition risk screen with RN. Per physician notes pt reports episodes of vomiting with some weight loss and difficulty eating/drinking. Pt admit for pancreatitis with etiology being obstructing stone near the proximal pancreatic duct identified on CT and/or EtOH related as pt consumes alcohol regularly per H&P. Despite reports of wt loss and inability to eat patient's weight appears to be stable. Most recent wt hx in EMR is as follows: 61.8 kg bed scale 04/14/2019, 60.3 kg pt stated 04/18/2019, and 59 kg bed scale 08/23/2019. Current documented wt is 59 kg. Pt currently NPO. No documented significant decrease in muscle strength or edema. Pt currently lacks a minimum of two criteria for malnutrition. Will continue to follow. Addendum: 06/19/21 at [address] Amended: Links added.
[2021-06-19 11:00] VITALS: BP 114/65
[2021-06-19] MEDS: clobetasol 0.05% cream 30gm TP SCH ×2 (12:25→20:36)
[2021-06-19] MEDS: normal saline 1000ml 1,000 ML IV SCH (14:23)
[2021-06-19 14:47] LABS: ALANINE AMINOTRANSFERASE 19 U/L (12-78); AMYLASE 364 U/L (25-115); ASPARTATE AMINO TRANSFERASE 40 U/L (10-37)
[2021-06-19 15:00] VITALS: BP 128/74
[2021-06-19] MEDS: levoFLOXACIN-Levaquin 500mg/D5 100 ML IV SCH (16:05)
[2021-06-19 18:00] VITALS: BP 108/62
--- NOTE | 2021-06-19 18:17 | NUR ---
Problems reprioritized. Patient report given, questions answered & plan of care reviewed with Loni Talbert
[2021-06-19] MEDS: doxepin 25mg capsule PO SCH (20:35)
[2021-06-19 22:00] VITALS: BP 96/57
[2021-06-20 02:00] VITALS: BP 99/56
--- NOTE | 2021-06-20 03:52 | NUR ---
reviewed and agree with SRN assessment
--- NOTE | 2021-06-20 05:11 | NUR ---
patient had his shoes and hat on when checking on him. The bed alarm hadnt sounded, so I asked if hed gotten up to the bathroom. He said no. I asked again if he had been out of bed and he said that radha been up walking in his room because he felt antsy due to his rash itching. I asked him if he needed me to put cream on his rash, he refused. I, again, reminded him about safety and staying in bed unless staff is with him. He agrees, but then impulsively and fast, moves to a sitting on the edge of the bed. I told him that his would be very upset with both of us if he were to fall in the room and we were unaware because he is not asking for help. He gets a bit withdrawn as if this upsets him, but agrees to comply. Bed alarm tested and put on on loudest setting. I also noticed that patient seems confused and quickly tries to cover this. I went in to check his PIV and was going to clean it and redress it, his statement was to try to leave it out so he could go home. I reminded him that he is in the hospital and needs to have the PIV in for medications and fluids. He quickly agreed and told me the time and reason he is in the hospital.
[2021-06-20] MEDS: normal saline 1000ml 1,000 ML IV SCH ×2 (05:24→23:45)
[2021-06-20] MEDS: acyclovir 200 MG capsule PO SCH ×5 (05:34→21:49)
[2021-06-20 06:00] VITALS: BP 114/63
[2021-06-20 07:21] LABS: BASOPHILS % (AUTO) 0.1 % (0-1); EOSINOPHILS % (AUTO) 0.1 % (0-6); HEMATOCRIT 30.1 % (42.0-52.0); HEMOGLOBIN 10.1 g/dl (14.0-17.9); LYMPHOCYTES # (AUTO) 0.8 X10'3 (1.1-4.8); LYMPHOCYTES % (AUTO) 5.3 % (21-51); MEAN CORPUSCULAR HEMOGLOBIN 29.7 PG (27.0-31.0); MEAN CORPUSCULAR HGB CONC 33.6 g/dL (33.0-36.5); MEAN CORPUSCULAR VOLUME 88.5 FL (78-98); MEAN PLATELET VOLUME 7.3 FL (7.4-10.4); MONOCYTES # (AUTO) 1.1 X10'3 (0-0.9); MONOCYTES % (AUTO) 7.4 % (2-12); NEUTROPHILS # (AUTO) 12.7 X10'3 (1.8-7.7); NEUTROPHILS % (AUTO) 87.1 % (42-75); PLATELET COUNT 190 X10'3 (140-440); WHITE BLOOD COUNT 14.5 X10'3 (4.5-11.0)
[2021-06-20 07:35] LABS: ALANINE AMINOTRANSFERASE 19 U/L (12-78); ALBUMIN/GLOBULIN RATIO 1.1 (1.1-1.5); ALKALINE PHOSPHATASE 55 IU/L (46-116); ANION GAP 11 (8-16); ASPARTATE AMINO TRANSFERASE 37 U/L (10-37); BILIRUBIN,TOTAL 0.5 MG/DL (0.1-1.0); BLOOD UREA NITROGEN 34 MG/DL (7-18); BUN/CREATININE RATIO 22.7 (5.4-32.0); CALCIUM 8.7 MG/DL (8.5-10.1); CHLORIDE 95 MMOL/L (99-107); GLUCOSE 80 MG/DL (70-104); LIPASE 404 U/L (73-393); MAGNESIUM 1.7 MG/DL (1.5-2.4); POTASSIUM 4.8 MMOL/L (3.5-5.1); SODIUM 127 MMOL/L (135-145); TOTAL CARBON DIOXIDE 21.5 MMOL/L (24-32); TOTAL PROTEIN 5.8 G/DL (6.4-8.2); eGFR 46 ML/MIN
[2021-06-20] MEDS: K and/or MAG REPLACEMENT MC SCH ×2 (08:00→19:58)
[2021-06-20] MEDS: atorvastatin 20mg tablet PO SCH (08:28)
[2021-06-20] MEDS: metoprolol tartrate 12.5mg (1/2 tablet) PO SCH ×2 (08:28→20:10)
[2021-06-20] MEDS: levoFLOXACIN-Levaquin 500mg/D5 100 ML IV SCH (08:29)
[2021-06-20] MEDS: gabapentin 100mg capsule PO SCH ×3 (08:29→20:10)
[2021-06-20] MEDS: clobetasol 0.05% cream 30gm TP SCH ×2 (08:29→21:49)
[2021-06-20] MEDS: apixaban 5mg tablet PO SCH ×2 (08:29→20:11)
[2021-06-20 11:00] VITALS: BP 106/61
[2021-06-20 15:00] VITALS: BP 110/59
[2021-06-20 18:00] VITALS: BP 120/69
--- NOTE | 2021-06-20 18:07 | NUR ---
Problems reprioritized. Patient report given, questions answered & plan of care reviewed with Meredith RIBEIRO.
[2021-06-20] MEDS: doxepin 25mg capsule PO SCH (20:10)
[2021-06-20 20:16] LABS: CHOL/HDL RATIO 2.3 (0.00-4.99); CHOLESTEROL 95 MG/DL (0-200); HDL CHOLESTEROL 42 MG/DL (35-60); LDL CHOLESTEROL 41 MG/DL (50-100); TRIGLYCERIDES 50 MG/DL (20-135)
[2021-06-20 22:00] VITALS: BP 103/52
--- NOTE | 2021-06-21 01:16 | NUR ---
reviewed and edited SRN assessment .
[2021-06-21 02:00] VITALS: BP 102/60
[2021-06-21] MEDS: acyclovir 200 MG capsule PO SCH ×2 (05:26→10:20)
[2021-06-21 06:00] VITALS: BP 119/70
--- NOTE | 2021-06-21 06:17 | NUR ---
Problems reprioritized. Patient report given, questions answered & plan of care reviewed with Kate RIBEIRO.
[2021-06-21 06:53] LABS: BASOPHILS % (AUTO) 0.2 % (0-1); EOSINOPHILS # (AUTO) 0.1 X10'3 (0-0.9); EOSINOPHILS % (AUTO) 0.8 % (0-6); HEMATOCRIT 29.7 % (42.0-52.0); LYMPHOCYTES % (AUTO) 7.5 % (21-51); MEAN CORPUSCULAR HEMOGLOBIN 29.9 PG (27.0-31.0); MEAN CORPUSCULAR HGB CONC 33.7 g/dL (33.0-36.5); MEAN CORPUSCULAR VOLUME 88.6 FL (78-98); MEAN PLATELET VOLUME 6.8 FL (7.4-10.4); MONOCYTES # (AUTO) 1.5 X10'3 (0-0.9); NEUTROPHILS % (AUTO) 80.5 % (42-75); PLATELET COUNT 201 X10'3 (140-440); RED BLOOD COUNT 3.35 X10'6 (4.70-6.10); WHITE BLOOD COUNT 13.7 X10'3 (4.5-11.0)
[2021-06-21 07:24] LABS: ALANINE AMINOTRANSFERASE 22 U/L (12-78); ALBUMIN 3.3 G/DL (3.4-5.0); ALBUMIN/GLOBULIN RATIO 1.2 (1.1-1.5); ALKALINE PHOSPHATASE 58 IU/L (46-116); ANION GAP 10 (8-16); ASPARTATE AMINO TRANSFERASE 44 U/L (10-37); BILIRUBIN,TOTAL 0.7 MG/DL (0.1-1.0); BLOOD UREA NITROGEN 28 MG/DL (7-18); BUN/CREATININE RATIO 20.3 (5.4-32.0); CALCIUM 8.4 MG/DL (8.5-10.1); CHLORIDE 99 MMOL/L (99-107); CREATININE 1.38 MG/DL (0.60-1.10); GLUCOSE 81 MG/DL (70-104); LIPASE 247 U/L (73-393); MAGNESIUM 1.7 MG/DL (1.5-2.4); POTASSIUM 4.5 MMOL/L (3.5-5.1); SODIUM 130 MMOL/L (135-145); TOTAL CARBON DIOXIDE 21.2 MMOL/L (24-32); TOTAL PROTEIN 6.1 G/DL (6.4-8.2); eGFR 51 ML/MIN
[2021-06-21 07:53] VITALS: BP_SYST 119
[2021-06-21] MEDS: metoprolol tartrate 12.5mg (1/2 tablet) PO SCH (07:53)
[2021-06-21] MEDS: apixaban 5mg tablet PO SCH (07:54)
[2021-06-21] MEDS: gabapentin 100mg capsule PO SCH (07:54)
[2021-06-21] MEDS: atorvastatin 20mg tablet PO SCH (07:54)
[2021-06-21] MEDS: clobetasol 0.05% cream 30gm TP SCH (07:57)
[2021-06-21] MEDS: K and/or MAG REPLACEMENT MC SCH (08:00)
[2021-06-21] MEDS ORDERED: levoFLOXACIN-Levaquin 250mg/D5 50 ML IV SCH (08:00)
[2021-06-21] MEDS ORDERED: ZOV200C PO ×2 (10:26)
--- NOTE | 2021-06-21 10:56 | NUR ---
home instruction given and explained to patient prior to discharge. 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
== END 2021-06-21 10:50 | disposition home or self-care (01) | DRG 871 ==
LOC: ER 14:14 → ED HOLD 21:40 → EDBEDREQ 21:48 → PCU 3S 22:26
PROVIDERS: ADMIT Internal Medicine; ATTEND Internal Medicine
PROC: 3E0234Z Introduction of Serum, Toxoid and Vaccine into Muscle, Percutaneous Approach (ICD-10-PCS; principal; 2021-06-19)
DX: A41.9 Sepsis, unspecified organism (principal); K85.90 Acute pancreatitis without necrosis or infection, unspecified; I25.10 Atherosclerotic heart disease of native coronary artery without angina pectoris; R21 Rash and other nonspecific skin eruption; Z95.1 Presence of aortocoronary bypass graft; Z23 Encounter for immunization; Z88.5 Allergy status to narcotic agent; Z79.899 Other long term (current) drug therapy
CPT/HCPCS: 36415; 71045; 74176; 74181; 76700; 80053; 80061; 82150; 83605; 83690; 83735; 83880; 84145; 84443; 84450; 84460; 85025; 87040; 87081; 90732; 93005; 93306; 96361; 96365; 96366; 96375; 99285; C9113; G0378; J1170; J1956; J2270; J2405; J2543; J2920; J3490; J7030

== ENCOUNTER 2021-07-02 11:10 | Outpatient (CLI) | payer MEDICARE ==
[~2021-07-02 11:10] MED LIST changes: -ACYC200C PO; -AMIO200T61 PO; -ASPI-1071 PO; -BACL20TA2 PO; -FURO20TA4 PO; -HYDR-4353 PO; -PANT20TA18 PO; -POTA10TA37 PO; -PRED10TA23 PO; -PRED5TAB PO; -SENN-166 PO
[2021-07-02 12:02] LABS: CLARITY,URINE CLEAR (Clear); COLOR,URINE YELLOW (Yellow); GLUCOSE, URINE NEGATIVE (Neg); KETONES,URINE NEGATIVE (Neg); LEUKOCYTE ESTERASE ,URINE TRACE (Neg); NITRITES, URINE NEGATIVE (Neg); OCCULT BLOOD,URINE NEGATIVE (Neg); PH,URINE 7.5 (4.8-8.0); PROTEIN,URINE NEGATIVE (Neg); UROBILINOGEN,URINE 0.2 E.U/dL (0.2-1.0)
[2021-07-02 12:03] LABS: UA COLLECTION TYPE CLN CATCH MIDSTREAM
[2021-07-02 12:05] LABS: BASOPHILS # (AUTO) 0.1 X10'3 (0-0.2); BASOPHILS % (AUTO) 0.9 % (0-1); EOSINOPHILS # (AUTO) 0.2 X10'3 (0-0.9); EOSINOPHILS % (AUTO) 1.9 % (0-6); HEMATOCRIT 30.1 % (42.0-52.0); HEMOGLOBIN 10.1 g/dl (14.0-17.9); LYMPHOCYTES # (AUTO) 1.3 X10'3 (1.1-4.8); LYMPHOCYTES % (AUTO) 12.8 % (21-51); MEAN CORPUSCULAR HEMOGLOBIN 30.3 PG (27.0-31.0); MEAN CORPUSCULAR HGB CONC 33.5 g/dL (33.0-36.5); MEAN CORPUSCULAR VOLUME 90.4 FL (78-98); MEAN PLATELET VOLUME 6.3 FL (7.4-10.4); MONOCYTES # (AUTO) 0.9 X10'3 (0-0.9); MONOCYTES % (AUTO) 8.7 % (2-12); NEUTROPHILS # (AUTO) 7.8 X10'3 (1.8-7.7); NEUTROPHILS % (AUTO) 75.7 % (42-75); PLATELET COUNT 476 X10'3 (140-440); RED BLOOD COUNT 3.33 X10'6 (4.70-6.10); RED CELL DISTRIBUTION WIDTH 14.5 % (11.5-14.5); WHITE BLOOD COUNT 10.3 X10'3 (4.5-11.0)
[2021-07-02 12:11] LABS: SQUAMOUS EPITHELIAL CELL,UR NONE SEEN /LPF (FEW)
[2021-07-02 12:12] LABS: BACTERIA,URINE FEW /HPF (Neg); RBC,URINE NONE SEEN /HPF (0-2); WBC,URINE 0-4 /HPF (0-4)
[2021-07-02 12:27] LABS: ALANINE AMINOTRANSFERASE 20 U/L (12-78); ALBUMIN 3.3 G/DL (3.4-5.0); ALKALINE PHOSPHATASE 75 IU/L (46-116); ANION GAP 8 (8-16); ASPARTATE AMINO TRANSFERASE 32 U/L (10-37); BILIRUBIN,TOTAL 0.3 MG/DL (0.1-1.0); BLOOD UREA NITROGEN 16 MG/DL (7-18); BUN/CREATININE RATIO 14.4 (5.4-32.0); CALCIUM 8.4 MG/DL (8.5-10.1); CHLORIDE 104 MMOL/L (99-107); CHOL/HDL RATIO 2.3 (0.00-4.99); CHOLESTEROL 89 MG/DL (0-200); CREATININE 1.11 MG/DL (0.60-1.10); GLUCOSE 82 MG/DL (70-104); HDL CHOLESTEROL 39 MG/DL (35-60); LDL CHOLESTEROL 48 MG/DL (50-100); POTASSIUM 4.2 MMOL/L (3.5-5.1); SODIUM 135 MMOL/L (135-145); TOTAL CARBON DIOXIDE 23.3 MMOL/L (24-32); TOTAL PROTEIN 6.7 G/DL (6.4-8.2); TRIGLYCERIDES 34 MG/DL (20-135); eGFR 65 ML/MIN
== END 2021-07-02 23:59 | disposition home or self-care (01) ==
LOC: LAB 11:10
PROVIDERS: ATTEND Family Medicine
DX: I10 Essential (primary) hypertension (principal); J34.89 Other specified disorders of nose and nasal sinuses; Z95.828 Presence of other vascular implants and grafts
CPT/HCPCS: 36415; 80053; 80061; 81001; 85025; 87088

== ENCOUNTER 2023-10-02 14:47 | Outpatient (CLI) | payer MEDICARE ==
[~2023-10-02 14:47] MED LIST changes: +ATOR20TA66 PO; -ATOR40TA PO; -LOP25T PO; +NICO-630 TD
[2023-10-02 15:26] LABS: BASOPHILS # (AUTO) 0.1 X10'3 (0-0.2); BASOPHILS % (AUTO) 1.1 % (0-1); EOSINOPHILS # (AUTO) 0.3 X10'3 (0-0.9); EOSINOPHILS % (AUTO) 3.6 % (0-6); HEMATOCRIT 34.8 % (42.0-52.0); HEMOGLOBIN 11.7 g/dl (14.0-17.9); LYMPHOCYTES # (AUTO) 1.7 X10'3 (1.1-4.8); LYMPHOCYTES % (AUTO) 20.1 % (21-51); MEAN CORPUSCULAR HEMOGLOBIN 30.5 PG (27.0-31.0); MEAN CORPUSCULAR HGB CONC 33.6 g/dL (33.0-36.5); MEAN CORPUSCULAR VOLUME 90.8 FL (78-98); MEAN PLATELET VOLUME 6.3 FL (7.4-10.4); MONOCYTES # (AUTO) 0.8 X10'3 (0-0.9); MONOCYTES % (AUTO) 9.4 % (2-12); NEUTROPHILS # (AUTO) 5.4 X10'3 (1.8-7.7); NEUTROPHILS % (AUTO) 65.8 % (42-75); PLATELET COUNT 384 X10'3 (140-440); RED BLOOD COUNT 3.83 X10'6 (4.70-6.10); RED CELL DISTRIBUTION WIDTH 13.6 % (11.5-14.5); WHITE BLOOD COUNT 8.2 X10'3 (4.5-11.0)
[2023-10-02 15:53] LABS: ALANINE AMINOTRANSFERASE 24 U/L (12-78); ALBUMIN 3.5 G/DL (3.4-5.0); ALBUMIN/GLOBULIN RATIO 1.1 (1.1-1.5); ALKALINE PHOSPHATASE 59 IU/L (46-116); ANION GAP 7 (8-16); ASPARTATE AMINO TRANSFERASE 26 U/L (10-37); BILIRUBIN,TOTAL 0.3 MG/DL (0.1-1.0); BLOOD UREA NITROGEN 12 MG/DL (7-18); BUN/CREATININE RATIO 10.7 (10.0-20.0); CALCIUM 8.5 MG/DL (8.5-10.1); CHLORIDE 97 MMOL/L (99-107); CHOL/HDL RATIO 2.5 (0.00-4.99); CHOLESTEROL 91 MG/DL (0-200); CREATININE 1.12 MG/DL (0.60-1.10); FERRITIN 149 NG/ML (26-388); GLUCOSE 83 MG/DL (70-104); HDL CHOLESTEROL 36 MG/DL (35-60); LDL CHOLESTEROL 44 MG/DL (50-100); POTASSIUM 3.7 MMOL/L (3.5-5.1); SODIUM 129 MMOL/L (135-145); TOTAL CARBON DIOXIDE 25.3 MMOL/L (24-32); TOTAL PROTEIN 6.8 G/DL (6.4-8.2); TRIGLYCERIDES 87 MG/DL (20-135); eGFR 64 ML/MIN
[2023-10-02 16:04] LABS: % IRON SATURATION 23 % (11-46); IRON 59 UG/DL (53-167); TOTAL IRON BINDING CAPACITY 259 UG/DL (259-388)
[2023-10-03 10:59] LABS: BILIRUBIN,URINE NEGATIVE (Neg); CLARITY,URINE CLEAR (Clear); COLOR,URINE YELLOW (Yellow); GLUCOSE, URINE NEGATIVE (Neg); KETONES,URINE NEGATIVE (Neg); LEUKOCYTE ESTERASE ,URINE SMALL (Neg); NITRITES, URINE NEGATIVE (Neg); OCCULT BLOOD,URINE NEGATIVE (Neg); PROTEIN,URINE NEGATIVE (Neg); UROBILINOGEN,URINE 0.2 E.U/dL (0.2-1.0)
[2023-10-03 11:01] LABS: UA COLLECTION TYPE VOIDED
[2023-10-03 11:07] LABS: BACTERIA,URINE FEW /HPF (Neg); RBC,URINE 0-2 /HPF (0-2); SQUAMOUS EPITHELIAL CELL,UR NONE SEEN /LPF (FEW); WBC,URINE 0-4 /HPF (0-4)
[2023-10-04 14:57] LABS: THYROXINE (T4) 6.6 ug/dL (4.5-12.0)
== END 2023-10-02 23:59 | disposition home or self-care (01) ==
LOC: LAB 14:47
PROVIDERS: ATTEND Student in an Organized Health Care Education/Training Program
DX: D64.9 Anemia, unspecified (principal); I10 Essential (primary) hypertension
CPT/HCPCS: 36415; 80053; 80061; 81001; 82728; 83540; 83550; 84436; 84443; 84466; 85025

== ENCOUNTER 2024-02-13 10:44 | Outpatient (CLI) | payer MEDICARE ==
[2024-02-13 11:28] LABS: BILIRUBIN,URINE NEGATIVE (Neg); CLARITY,URINE CLEAR (Clear); COLOR,URINE YELLOW (Yellow); GLUCOSE, URINE NEGATIVE (Neg); KETONES,URINE NEGATIVE (Neg); LEUKOCYTE ESTERASE ,URINE NEGATIVE (Neg); NITRITES, URINE NEGATIVE (Neg); OCCULT BLOOD,URINE NEGATIVE (Neg); PROTEIN,URINE NEGATIVE (Neg); UROBILINOGEN,URINE 0.2 E.U/dL (0.2-1.0)
[2024-02-13 11:33] LABS: BASOPHILS # (AUTO) 0.1 X10'3 (0-0.2); BASOPHILS % (AUTO) 1.2 % (0-1); EOSINOPHILS # (AUTO) 0.3 X10'3 (0-0.9); EOSINOPHILS % (AUTO) 2.8 % (0-6); HEMATOCRIT 38.5 % (42.0-52.0); HEMOGLOBIN 12.9 g/dl (14.0-17.9); LYMPHOCYTES # (AUTO) 1.6 X10'3 (1.1-4.8); LYMPHOCYTES % (AUTO) 16.9 % (21-51); MEAN CORPUSCULAR HEMOGLOBIN 31.1 PG (27.0-31.0); MEAN CORPUSCULAR HGB CONC 33.6 g/dL (33.0-36.5); MEAN CORPUSCULAR VOLUME 92.5 FL (78-98); MEAN PLATELET VOLUME 6.7 FL (7.4-10.4); MONOCYTES # (AUTO) 0.6 X10'3 (0-0.9); MONOCYTES % (AUTO) 6.6 % (2-12); NEUTROPHILS # (AUTO) 6.9 X10'3 (1.8-7.7); NEUTROPHILS % (AUTO) 72.5 % (42-75); PLATELET COUNT 264 X10'3 (140-440); RED BLOOD COUNT 4.16 X10'6 (4.70-6.10); RED CELL DISTRIBUTION WIDTH 13.1 % (11.5-14.5); WHITE BLOOD COUNT 9.5 X10'3 (4.5-11.0)
[2024-02-13 11:47] LABS: UA COLLECTION TYPE CLN CATCH MIDSTREAM
[2024-02-13 12:19] LABS: ALANINE AMINOTRANSFERASE 18 U/L (12-78); ALBUMIN 3.2 G/DL (3.4-5.0); ALKALINE PHOSPHATASE 55 IU/L (46-116); ANION GAP 10 (8-16); ASPARTATE AMINO TRANSFERASE 27 U/L (10-37); BILIRUBIN,TOTAL 0.4 MG/DL (0.1-1.0); BLOOD UREA NITROGEN 17 MG/DL (7-18); BUN/CREATININE RATIO 16.8 (10.0-20.0); CALCIUM 8.5 MG/DL (8.5-10.1); CHLORIDE 102 MMOL/L (99-107); CHOLESTEROL 121 MG/DL (0-200); CREATININE 1.01 MG/DL (0.60-1.10); GLUCOSE 83 MG/DL (70-104); HDL CHOLESTEROL 41 MG/DL (35-60); LDL CHOLESTEROL 69 MG/DL (50-100); POTASSIUM 4.3 MMOL/L (3.5-5.1); SODIUM 135 MMOL/L (135-145); THYROID STIMULATING HORMONE 2.53 ulU/ml (0.34-4.50); TOTAL CARBON DIOXIDE 22.9 MMOL/L (24-32); TOTAL PROTEIN 6.3 G/DL (6.4-8.2); TRIGLYCERIDES 93 MG/DL (20-135); eGFR 72 ML/MIN
== END 2024-02-13 23:59 | disposition home or self-care (01) ==
LOC: LAB 10:44
PROVIDERS: ATTEND Nurse Practitioner Family
DX: Z00.01 Encounter for general adult medical examination with abnormal findings (principal); I10 Essential (primary) hypertension; F33.1 Major depressive disorder, recurrent, moderate; E78.5 Hyperlipidemia, unspecified
CPT/HCPCS: 36415; 80053; 80061; 81003; 84436; 84443; 85025

== ENCOUNTER 2024-03-22 13:23 | Outpatient (CLI) | payer MEDICARE ==
[2024-03-21 14:31] LABS: ALANINE AMINOTRANSFERASE 20 U/L (12-78); ALBUMIN 3.5 G/DL (3.4-5.0); ALBUMIN/GLOBULIN RATIO 1.1 (1.1-1.5); ALKALINE PHOSPHATASE 84 IU/L (46-116); ANION GAP 6 (8-16); ASPARTATE AMINO TRANSFERASE 26 U/L (10-37); BILIRUBIN,TOTAL 0.6 MG/DL (0.1-1.0); BLOOD UREA NITROGEN 19 MG/DL (7-18); CALCIUM 8.7 MG/DL (8.5-10.1); CHLORIDE 101 MMOL/L (99-107); CREATININE 1.27 MG/DL (0.60-1.10); GLUCOSE 91 MG/DL (70-104); POTASSIUM 4.8 MMOL/L (3.5-5.1); SODIUM 133 MMOL/L (135-145); TOTAL CARBON DIOXIDE 25.8 MMOL/L (24-32); TOTAL PROTEIN 6.7 G/DL (6.4-8.2); eGFR 55 ML/MIN
[2024-03-22] MEDS ORDERED: GADOTERATE MEGLUMINE 7.5 MMOL/15 ML VIAL IV ONE (18:33)
== END 2024-03-22 23:59 | disposition home or self-care (01) ==
LOC: MRI 13:23
PROVIDERS: ATTEND Nurse Practitioner Family
DX: I67.82 Cerebral ischemia (principal); G31.9 Degenerative disease of nervous system, unspecified; E87.1 Hypo-osmolality and hyponatremia; R42 Dizziness and giddiness; R11.0 Nausea
CPT/HCPCS: 36415; 70553; 80053; A9575